=== PATIENT | female | born 1990 | race Caucasian/White ===

== ENCOUNTER 2021-09-24 12:11 | Day surgery (SDC) | payer OTHER, SELFPAY ==
[2021-09-24] VITALS (7 sets, daily range): BP systolic 119–132; BP diastolic 73–85; PULSE 52–94; RESP 16–18; TEMP 36.3–37.2; O2SAT 96–100; BMI 30.3
[2021-09-24 13:08] LABS: Hematocrit 33.7 % (37-47); Mean Corp Hgb Conc 32.6 g/dL (32-36); Mean Corpuscular Hgb 26.4 pg (27.0-32.0); Mean Platelet Vol. 9.6 fl (6.2-12.0); Platelet Count 322 K/mm3 (150-450); RBC Distribution Width CV 13.7 % (11.6-14.6); RBC Distribution Width SD 39.9 fl (35.1-43.9); Red Blood Count 4.16 M/mm3 (4.2-5.4); White Blood Count 6.3 K/mm3 (4.4-11.0)
[2021-09-24 13:10] LABS: Internal QC Validated? YES +Cl - CLEAR BKGD; Pregnancy, Urine Negative Negative
[2021-09-24] MEDS: Lactated Ringers 1,000 ML 15 ML IV (13:10)
--- NOTE | 2021-09-24 13:45 | EMB_PTH ---
PATIENT: JUAN MEHTA LOC: [facility] [place] U#:[id number] AGE/SX: 31/F ROOM: RE09/24/[address]: Dr. Ashley Parks DO : 1990 BED: DIS: 09/24/2021 SPEC #: [id number] RECD: 09/25/21 08:12 STATUS: LINDSAY SULEMA #: [id number] STEFANI: 09/24/21 13:[address]: Ashley Parks DEPT: SURGICAL PATHOLOGY RECD BY: Mimi Faulkner ENTERED: 09/25/21 08:29 SP TYPE: ENDOM BX/C OT DR: Meera Bishop, TABLE CUT OFF SAW OPERATOR-C Tissues: Endometrium, NOS Procedures: Surgery Specimen Level IV HEADER OPERATION: Hysteroscopy, D & C Symphion PRE-OP DIAGNOSIS: Abnormal pap smear of cervix TISSUE SUBMITTED: Endometrial curettings MICROSCOPIC DIAGNOSIS Endometrial curettings: Mildly disordered proliferative endometrium with focal glandular and stromal breakdown. Fragments of benign ecto- and endocervical mucosa with chronic inflammation and squamous metaplasia. SJ:jennifer 09/28/2021 COMMENT Case has been reviewed in consultation with Dr. Espinoza who concurs with the above diagnosis. IDC:AM MICROSCOPIC DESCRIPTION Slides are reviewed. GROSS DESCRIPTION Received in fixative is one container labeled with the patient's name and designated endometrial curettings. The specimen consists of multiple irregular fragments of dark byrne soft tissue that in aggregate measure 2 x 2 x 0.2 cm. The specimen is totally submitted in one cassette. / AM:jennifer 09/25/2021 TC:5 CPT: 29756
--- NOTE | 2021-09-24 13:53 | DCINST_ITS ---
Discharge Instructions Diet Discharge Diet: No restrictions Activity Discharge Activity: May Not Drive (for 24 hours after surgery) and May Not Shower (for 24 hours after surgery) May resume sexual activity in: 1-2 weeks (no tampons, intercourse, hot tubs, baths, or pools while you are having bleeding) Weight Bearing Status: Weight bearing as tolerated Lifting Restrictions: none Dressing / Incision Call your doctor if you observe: Fever of 101 or Higher, Coldness, Increased Pain, Numbness or Tingling, Change in Color, Inability to urinate, Inability to have a bowel movement, Using more than 1 pad per hour, Shortness of breath, Dizziness, Fainting spells, Swelling in the ankles, Chest pain, Increased palpitations (irregular heartbeat), Calf discomfort and Uncontrolled pain Follow Up Care Please Follow Up With: Ashley Parks DO When: 1-2 weeks for a post op appointment Test Results: Test results from this visit will be discussed in further detail at your follow- up appointment, if applicable. Discharge Plan Admission Primary Reason for Your Visit: surgery Attending Provider: Ashley Parks Primary Care Provider: Meera Bishop NP Instructions Patient Instructions: Hysteroscopy Discharge Orders/Prescriptions Prescriptions: Continued pantoprazole 40 mg Tablet,Delayed Release (Dr/Ec) 40 mg PO DAILY Referrals / Follow Up: Meera Bishop NP, SALES AND MARKETING ASSOCIATE-C [Primary Care Provider] - Disposition Disposition (needs filled in before D/C Order can be placed): Home, Self Care
--- NOTE | 2021-09-24 13:54 | OP.PCM_ITS ---
Problems Associated Problem List Diagnoses (1) DUB (dysfunctional uterine bleeding): Report of Operation Date of Procedure: 09/24/21 Pre-Operative Diagnosis: DUB, heterogenous endometrium with fluid present in cavity on pelvic US Post-Operative Diagnosis: DUB Surgery/Procedure Performed:: Hysteroscopy D&C Description of Surgical Findings:: Normal appearing uterine cavity and endometrium. No polyps or fibroids. Bilateral tubal ostia visualized. Minimal to no descent of uterus and cervix. Cervical stenosis noted. Surgeon: Ashley Parks slide fastener chain assembler: None Type of Anesthesia: Local and MAC Special Medications: None Specimen's removed: Endometrial curettings Drains: None Estimated Blood Loss (mL): < 20 cc Fluids Replaced: 0 cc fluid deficit Description of Procedure: The patient was taken to the operating room where MAC anesthesia was found to be adequate. She was prepped and draped in the dorsal lithotomy position using yellowfin stirrups. A weighted speculum was placed in the vagina to expose the cervix. The single tooth tenaculum was placed on the anterior lip of the cervix. The cervix was serially dilated to accommodate the Symphion hysteroscope. This Symphion hysteroscope was advanced to the fundus of the uterus. Normal saline was used as distention media to visualize the uterine cavity. Bilateral tubal ostia were visualized. The uterine cavity and endometrium were normal appearing. Findings were noted as above. The hysteroscope was removed. A sharp curettage was performed for a moderate amount of tissue. Endometrial curettings were sent to pathology for review. All instruments removed from the vagina. Bleeding was hemostatic. A vaginal sweep was performed. Instrument and sponge counts were correct. The patient was taken to the recovery in stable condition. Grafts/Implants Used: None Procedure Start Time: 14:12 Procedure Stop Time: 14:17 Complications None Admit VTE Documentation VTE Present on Admission: No VTE Mechan Device Prophylaxis: SCD's
== END 2021-09-24 16:10 | disposition home or self-care (01) ==
LOC: SDC 12:16 → AC 12:31
PROVIDERS: PCP Nurse Practitioner Family; Referring Provider Obstetrics & Gynecology; Visit Provider Obstetrics & Gynecology
PROC: 0UB98ZZ Excision of Uterus, Via Natural or Artificial Opening Endoscopic (ICD-10-PCS; CPT 58558; principal; 2021-09-24 13:30)
DX: N85.8 Other specified noninflammatory disorders of uterus (principal); K21.9 Gastro-esophageal reflux disease without esophagitis; Z79.899 Other long term (current) drug therapy
CPT/HCPCS: 58558; 00952; 81025; 85027; 86850; 86900; 86901; 88305; J2405

== ENCOUNTER 2022-03-25 16:22 | Emergency (ER) | payer OTHER, SELFPAY ==
[2022-03-25 16:23] VITALS: BP 132/95; PULSE 90; RESP 18; TEMP 35.8; O2SAT 99; BMI 29.2
[2022-03-25] MEDS: Ondansetron 4 MG/2 ML Vial IV (18:05)
[2022-03-25] MEDS: 0.9% Normal Saline 1,000 ML 1000 ML IV (18:06)
[2022-03-25 18:21] LABS: Bacteria 0 SEEN /hpf (None Seen)
--- NOTE | 2022-03-25 18:27 | CT_ITS ---
EXAM: CT HEAD WITHOUT INTRAVENOUS CONTRAST CLINICAL INDICATION: headache, vomiting TECHNIQUE: Multiple axial images were obtained of the head without intravenous contrast. This CT exam was performed using one or more of the following dose reduction techniques: automated exposure control, adjustment of the mA and/or kV according to patient size, and/or use of iterative reconstruction technique. This report was created using [employer] report generation technology. COMPARISON: None. FINDINGS: BRAIN AND EXTRA-AXIAL SPACES: Unremarkable. No intra- or extra-axial hemorrhage. No evidence of acute infarct. No intracranial mass or mass effect. There is preservation of the solomon/white matter interface. Posterior fossa structures are unremarkable. Ventricles are appropriate for age. No hydrocephalus. Basal cisterns are patent. BONES/JOINTS: Unremarkable. No discrete lytic or blastic abnormalities. SINUSES: Unremarkable as visualized. Clear. MASTOID AIR CELLS: Unremarkable. Clear. ORBITS: Visualized globes, extraocular muscles, optic nerves and retrobulbar fat appear unremarkable. CT/Brain/Head without Contrast IMPRESSION: Negative head/brain CT without intravenous contrast. Electronically Signed: Naveed Lao MD at 19:59 EST ,
[2022-03-25 18:29] LABS: Color, Urine Yellow (Yellow); Glucose, Dipstick Normal (Normal); Leukocyte Esterase-Dipstick 25 /ul (Negative); Nitrite-Dipstick Negative (Negative); Occult Blood-Urine 10 /ul (Negative); Protein-Dipstick 15 mg/dl (Negative); Specific Gravity, Urine 1.015 (1.002-1.030); Urine Bilirubin Dipstick Negative (Negative); Urine Clarity Sl. Cloudy (Clear); Urine Urobilinogen Normal (Normal)
[2022-03-25 18:43] LABS: AST(SGOT) 12 U/L (15-37); Alanine Aminotransfer ALT/SGPT 28 U/L (13-56); Albumin, Serum 4.1 g/dL (3.2-5.0); Alkaline Phosphatase 65 U/L (45-117); Anion Gap 6 (5-15); BUN 12 mg/dL (7-18); BUN/Creat Ratio 15.2 RATIO (10-20); Calcium,Total 9.5 mg/dL (8.5-10.1); Chloride 107 mmol/L (98-107); Creatinine, Serum 0.79 mg/dL (0.55-1.02); EST Glomerular Filtration Rate 89 mL/min (>60); Est Glom Filt Rate - Afr Amer 107 mL/min (>60); Estimated Creatinine Clearance 79.36 ml/min; Globulin 4.1 g/dL (2.2-4.2); Glucose 104 mg/dL (74-106); Lipase 137 U/L (73-393); Potassium 3.5 mmol/L (3.5-5.1); Protein, Total 8.2 g/dL (6.4-8.2); Sodium Level 138 mmol/L (136-145)
[2022-03-25 19:02] LABS: Ketone-Dipstick 150 mg/dl (Negative)
[2022-03-25 19:14] LABS: Internal QC Validated? YES +Cl - CLEAR BKGD; Mucous, Urine 4+ /hpf (<or=2+); Pregnancy, Urine Negative Negative; Red Blood Cells-Urine 0-5 SEEN /hpf (0-5); Squamous Epithelial Cells - UA 5-10 SEEN /hpf (5-10); White Blood Cells 0-5 SEEN /hpf (0-5)
[2022-03-25 19:35] LABS: Absolute Lymphocyte Count 0.83 X10^3/uL (0.83-4.51); Absolute Neutrophil Count 8.8 X10^3/uL (2.0-7.7); Basophil# 0.03 X10^3/uL; Basophil% 0.3 % (0-1); Eosinophil# 0.01 X10^3/uL; Eosinophils% 0.1 % (0-5); Hematocrit 36.4 % (37-47); Hemoglobin 11.4 g/dL (12.0-15.0); Lymphocyte # 0.83 X10^3/ul (0.83-4.51); Lymphocyte % 8.2 % (19-41); Mean Corp Hgb Conc 31.3 g/dL (32-36); Mean Corpuscular Hgb 24.5 pg (27.0-32.0); Mean Corpuscular Volume 78.1 fL (81-99); Mean Platelet Vol. 9.8 fl (6.2-12.0); Monocyte% 4.9 % (0-10); NRBC Flagged by Analyzer 0 % (0-5); Neutrophil # 8.77 X10^3/uL (2.7-7.7); Neutrophil % 86.2 % (47-70); Platelet Count 386 K/mm3 (150-450); RBC Distribution Width CV 14.6 % (11.6-14.6); RBC Distribution Width SD 40.7 fl (35.1-43.9); Red Blood Count 4.66 M/mm3 (4.2-5.4); White Blood Count 10.2 K/mm3 (4.4-11.0)
--- NOTE | 2022-03-25 20:06 | EDS_ITS ---
HPI History of Present Illness Chief Complaint: Nausea/Vomiting Informant: patient Narrative Narrative: Patient is a 32-year-old female presenting with nausea, vomiting and headache. Patient states her stomach was upset throughout the night last night and then sh e woke up puking. She did have an episode of diarrhea this morning. Initially she was vomiting food from the night before and then it just became clear. Denies any black or blood in her vomit. Around 2 PM she developed a headache over her right eye that radiates to her right ear. She does have a history of migraine headaches was never had a unilateral 1. She states she has had a lot of forceful vomiting. Denies any vision changes, numbness, tingling, speech changes or any other neurologic symptoms. Was sent home from work today because she was throwing up. Does have a history of endometriosis and has associated exploratory laparoscopy as well as a tubal ligation and unilateral salpingectomy associated with an ectopic . No other complaints at this time. [facility] Medical History (Updated 03/25/22 @ 22:[address] Pura Tompkins, DO) Cancer Gastric reflux Hx of LEEP (loop electrosurgical excision procedure) of cervix complicating Migraine headache Non-smoker Restless legs Home Medications pantoprazole 40 mg tablet,delayed release 40 mg PO DAILY 09/17/21 [History Last Taken Unknown] ondansetron 4 mg disintegrating tablet 4 mg PO Q6H PRN nausea and vomiting #20 tabs 03/25/22 [Rx Last Taken Unknown] Allergy/AdvReac Type Severity Reaction Status Date / Time No Known Allergies Allergy Verified 03/25/22 16:23 Surgical History (Updated 09/17/21 @ 10:27 by Adelina Reyna) History of hysteroscopy Hx of dilation and curettage Hx of laparoscopy Hx of tubal ligation Social History (Updated 08/03/19 @ 11:19 by Álvaro PETERS, PA) Smoking Status: Never smoker ROS ROS ED Constitutional Constitutional ED: Denies chills or fever(s) ENT ENT ED: Denies sore throat Cardiovascular Cardiovascular: Denies chest pain Respiratory/Chest Respiratory/Chest: Denies cough or dyspnea Gastrointestinal Gastrointestinal: Reports abdominal pain, diarrhea, nausea and vomiting Genitourinary Genitourinary ED: Denies dysuria or hematuria Musculoskeletal Musculoskeletal: Denies arthralgias or myalgias Integumentary Denies rash Neurologic Neurologic: Reports headache(s); Denies paresthesias or weakness Psychiatric Psychiatric: Denies anxiety Hematologic/Lymphatic Hematologic/Lymphatic: Denies easy bleeding EXAM Physical Exam Const Vital Signs: 03/25/22 16:23 Temperature 96.5 F L Temperature Source Temporal Pulse Rate 90 Respiratory Rate 18 Blood Pressure 132/95 H Blood Pressure Mean 107 Pulse Ox 99 Oxygen Delivery Method Room Air Positive well nourished and well developed General Appearance ED: well developed and NAD HEENT Reports TM's clear and dry mucous membranes Tympanic Membrane ED: Yes TM's clear Mouth ED: Yes dry mucous membranes Mouth: dry mucous membranes Eyes PERRL and EOMs intact bilaterally Neck supple and no JVD Neck Narrative: No nuchal rigidity Resp normal respiratory effort and clear to auscultation bilaterally Cardio regular rate, regular rhythm and no murmurs GI normal to inspection, nondistended, normoactive bowel sounds GI Narrative: Mild diffuse tenderness, worse in the lower abdomen Palpation: Negative for guarding Neuro oriented x3 Sensorium / Orientation: alert Psych mental status grossly normal Skin no rashes or lesions noted MDM MDM MDM Narrative Medical decision making narrative: Patient is evaluated for sudden onset of nausea, vomiting diarrhea. After multiple pills of vomiting she developed a right-sided headache. She has a history of migraines but she never had unilateral headache. She has normal neurologic exam. Given her vomiting differential does include subarachnoid hemorrhage/ruptured aneurysm. She is within 6 hours of symptom onset and CT of the brain is obtained to rule out intracranial hemorrhage. This is negative. In the meantime patient is given IV fluids and Zofran. She is feeling better but still complain of a headache. Lab work including CBC, CMP and lipase is largely normal. Urinalysis does show 150 ketones but otherwise unremarkable. Patient is then given a migraine cocktail including Compazine, Benadryl and Toradol as well as additional liter of IV fluid. Repeat evaluation she is improved. She be discharged home with a prescription for Zofran. Given her improvement of symptoms with no leukocytosis or other laboratory normalities I do not think imaging is indicated. She is given return precautions. Lab Data Attestation: I reviewed the patient's lab results. Labs: Laboratory Results - last 24 hr 03/25/22 03/25/22 03/25/22 18:00 18:05 18:05 WBC 10.2 RBC 4.66 Hgb 11.4 L Hct 36.4 L MCV 78.1 L MCH 24.5 L MCHC 31.3 L RDW Std Deviation 40.7 RDW Coeff of Sharla 14.6 Plt Count 386 MPV 9.8 Immature Gran % (Auto) 0.300 Neut % (Auto) 86.2 H Lymph % (Auto) 8.2 L Rabun % (Auto) 4.9 Eos % (Auto) 0.1 Baso % (Auto) 0.3 Absolute Neuts (auto) 8.8 H Absolute Lymphs (auto) 0.83 Nucleated RBC % 0 Sodium 138 Potassium 3.5 Chloride 107 Carbon Dioxide 25.0 Anion Gap 6 BUN 12 Creatinine 0.79 Estim Creat Clear Calc 79.36 Est GFR (MDRD) Af Amer 107 Est GFR (MDRD) Non-Af 89 BUN/Creatinine Ratio 15.2 Glucose 104 Calcium 9.5 Total Bilirubin 0.50 AST 12 L ALT 28 Alkaline Phosphatase 65 Total Protein 8.2 Albumin 4.1 Globulin 4.1 Albumin/Globulin Ratio 1.0 Lipase 137 Urine Color Yellow Urine Clarity Sl. Cloudy Urine pH 7.0 Ur Specific Mccaulley 1.015 Urine Protein 15 H Urine Glucose (UA) Normal Urine Ketones 150 A* Urine Occult Blood 10 H Urine Nitrite Negative Urine Bilirubin Negative Urine Urobilinogen Normal Ur Leukocyte Esterase 25 H Urine RBC 0-5 SEEN Urine WBC 0-5 SEEN Ur Squamous Epith Cells 5-10 SEEN Urine Bacteria 0 SEEN Urine Mucus 4+ Urine Test Negative Radiography Diagnostic Testing: Clinical Impression(s) from Imaging Studies Brain CT 03/25/22 18:27 IMPRESSION: Negative head/brain CT without intravenous contrast. Electronically Signed: Naveed Lao MD at 19:59 EST , Discharge Plan Triage Chief Complaint: Nausea/Vomiting ED Provider: Pura Tompkins Dx/Rx/DC Orders Clinical Impression: Nausea and vomiting, Acute dehydration, Headache Instructions: ED Dehydration (Adult), ED Vomiting (Adult) Prescriptions: New ondansetron 4 mg tablet,disintegrating 4 mg PO Q6H PRN (Reason: nausea and vomiting) Qty: 20 0RF No Action pantoprazole 40 mg Tablet,Delayed Release (Dr/Ec) 40 mg PO DAILY Primary Care Provider: Patricia Snowden Referrals: Patricia Snowden DO [Primary Care Provider] - Disposition Disposition: Home, Self Care Discharge Date/Time: 03/25/22 23:02
[2022-03-25] MEDS: Ketorolac 15 MG/ML Vial IV (20:34)
[2022-03-25] MEDS: 0.9% Normal Saline 1,000 ML 999 ML IV (20:34)
[2022-03-25] MEDS: DiphenhydrAMINE 50 MG/ML Syringe 25 MG IV (20:34)
[2022-03-25] MEDS: proCHLORPERazine 10 MG/2 ML Vial IV (20:34)
== END 2022-03-25 23:02 | disposition home or self-care (01) ==
PROVIDERS: Emergency Provider Emergency Medicine; PCP Family Medicine; Visit Provider Emergency Medicine
DX: R11.2 Nausea with vomiting, unspecified (principal); E86.0 Dehydration; R51.9 Headache, unspecified
CPT/HCPCS: 70450; 80053; 81001; 81025; 83690; 85025; 96361; 96374; 96375; 99283; J7030; A4216; J2405

== ENCOUNTER 2022-11-30 11:07 | Day surgery (SDC) | payer OTHER, SELFPAY ==
--- NOTE | 2022-11-30 | ESO_PTH ---
PATIENT: JUAN MEHTA LOC: [facility] U#:[id number] AGE/SX: 32/F ROOM: RE11/30/[address]: Dr. Ge Bacon DO : 1990 BED: DIS: 11/30/2022 SPEC #: [id number] RECD: 11/30/22 13:40 STATUS: LINDSAY SULEMA #: [id number] STEFANI: 11/30/22 00:[address]: Ge Bacon DEPT: SURGICAL PATHOLOGY RECD BY: Ariel Perez ENTERED: 12/01/22 09:18 SP TYPE: RACHID JAIME DR: Meera Bishop, FIELD ENGINEER-C Tissues: Esophagus, NOS Procedures: Special Stain Group II Special Stain Group I Surgery Specimen Level IV GMS Stain (control) Alcian Blue/PAS (control) HEADER OPERATION: EGD ([facility] [place]) with biopsy PRE-OP DIAGNOSIS: Gastric reflux, loose stools TISSUE SUBMITTED: Distal esophagus biopsy MICROSCOPIC DIAGNOSIS Distal esophagus, biopsy: Fragments of gastroesophageal mucosa with focal intestinal metaplasia (goblet cell metaplasia), consistent with Alas's esophagus. Focal ulceration, acute and chronic inflammation and granulation tissue reaction. Negative for dysplasia. See comment. GONZÁLEZ:jennifer 12/02/2022 COMMENT Alcian blue/PAS stain with matched control is used in the evaluation of the specimen. Immunohistochemistry ([id number]) for P53 and Ki-67 will be performed and results will be reported separately. Special stain for fungi is negative for organisms; matched control is appropriate. MICROSCOPIC DESCRIPTION Slides are reviewed. GROSS DESCRIPTION Received in fixative is one container labeled with the patient's name and designated distal esophagus biopsy. The specimen consists of multiple irregular fragments of light byrne soft tissue that in aggregate measure 1.0 x 0.4 x 0.1 cm. The specimen is totally submitted in one cassette. / GONZÁLEZ:jennifer 12/01/2022 TC:2 CPT: 67331, 51367, 42471
[2022-11-30 11:28] VITALS: BP 122/92; PULSE 85; RESP 16; TEMP 36.2; O2SAT 97; BMI 30.6
[2022-11-30] MEDS: Lactated Ringers 1,000 ML 15 ML IV (11:33)
--- NOTE | 2022-11-30 12:11 | HP.PCM_ITS ---
History and Physical Date of Admission: 11/30/22 32 F who presents to the office today for acid reflux. She reports heartburn for as long as she can remember but significantly worse this year. Gets burning in her throat, every day, worse when lying down. Pantoprazole helps but symptoms not fully resolved. Vomits about 3 nights a week, usually yellow emesis. No dysphagia. Gets full quickly, that started this year. Discomfort in upper abdomen. BMs 4 x w/in first hour of getting up, stool is typically loose, usually has a yellow tint. No nocturnal BMs. Had constipation as a child. No melena or hematochezia. Told sludge in gallbladder. She is an [employer] ROS Const Constitutional: Positive for fatigue ENT ENT: No difficulty swallowing Gastro GI: Positive for abdominal pain, bloating, heartburn, excessive flatus, nausea/dyspepsia and vomiting; No belching, change in bowel habits, change in stool character, coffee ground emesis, constipation, cramping, diarrhea, difficulty swallowing, feeling full early, incontinent of stools, Vomiting blood/hematemesis, Blood in stool, loose stools, Black,tarry stools, pain with swallowing or other Musc Musculoskeletal: Positive for back pain, stiffness, restless legs and leg pain at night; No joint pain Skin Skin: No yellowing of the eye or itchy eyes Neuro Neurology: Positive for restless legs Psych Psychiatric: Positive for anxiety and No depression Endo Endocrine: Positive for fatigue Aller/Imm Allergy/Immunologic: No itchy eyes Michael/Lymp Hematologic/Lymphatic: No easy bleeding or easy bruising Exam Const General: cooperative and comfortable Orientation: alert, awake and oriented x3 Eyes Sclera: sclerae normal Resp Effort & Inspection: normal respiratory effort GI Inspection: normal to inspection Palpation: soft, no hepatosplenomegaly, no masses and tender in the epigastrum Quality Reporting Tobacco Screening ([facility] 138) Smoking Status: Never smoker Assessment and Plan Assessment and Plan (1) Gastric reflux: Status: Chronic Plan: 32 yr old female with chronic reflux only partially controlled with PPI. ?bile acid reflux and bile acid diarrhea. Start colestipol 1-2 g qhs. Will get EGD. (2) Loose stools: Status: Chronic Plan: as above Medications: New colestipol 1-2 tablets orally at bedtime; 60 tabs 2RF Discontinued ondansetron Discontinued Reason: Order Completed 4 mg PO Q6H PRN 20 tabs 0RF nausea and vomiting I have examined the patient and the H&P has been reviewed. There are no clinical changes since date of exam.
[2022-11-30 12:35] VITALS: BP 104/63; BP 122/92; PULSE 94; RESP 16; TEMP 36.4; O2SAT 97
--- NOTE | 2022-11-30 12:36 | OP.EGD_ITS ---
Patient Name: Clau Ganhdi Procedure Date: 11/30/2022 12:09 PM Date of : 1990 Age: 32 Procedure: Upper GI endoscopy Indications: Epigastric abdominal pain, Dysphagia, Heartburn, Suspected esophageal reflux Providers: Ge Bacon DO Referring MD: Abdirahman Cheng Medicines: Monitored Anesthesia Care Patient Profile: This is a 32 year old female. Refer to note in patient chart for documentation of history and physical. Patient has symptoms of chronic epigastric abdominal pain, dysphagia with solids, chronic heartburn and chronic nausea. Complications: No immediate complications. Procedure: Pre-Anesthesia Assessment: - Prior to the procedure, a History and Physical was performed, and patient medications and allergies were reviewed. The risks and benefits of the procedure and the sedation options and risks were discussed with the patient. All questions were answered and informed consent was obtained. Patient identification and proposed procedure were verified by the physician. Mental Status Examination: normal. Prophylactic Antibiotics: The patient does not require prophylactic antibiotics. Prior Anticoagulants: The patient has taken no anticoagulant or antiplatelet agents. After reviewing the risks and benefits, the patient was deemed in satisfactory condition to undergo the procedure. The anesthesia plan was to use monitored anesthesia care (MAC). Immediately prior to administration of medications, the patient was re-assessed for adequacy to receive sedatives. The heart rate, respiratory rate, oxygen saturations, blood pressure, adequacy of pulmonary ventilation, and response to care were monitored throughout the procedure. The physical status of the patient was re-assessed after the procedure. After obtaining informed consent, the endoscope was passed under direct vision. Throughout the procedure, the patient's blood pressure, pulse, and oxygen saturations were monitored continuously. The Endoscope was introduced through the mouth, and advanced to the second part of duodenum. The upper GI endoscopy was accomplished without difficulty. The patient tolerated the procedure well. Scope In: 12:24:52 PM Scope Out: 12:28:43 PM Total Procedure Duration Time 0 hours 3 minutes 51 seconds Findings: LA Grade C (one or more mucosal breaks continuous between tops of 2 or more mucosal folds, less than 75% circumference) esophagitis with bleeding was found 36 to 39 cm from the incisors. Biopsies were taken with a cold forceps for histology. Verification of patient identification for the specimen was done. Estimated blood loss was minimal. A moderate Schatzki ring was found in the distal esophagus. A guidewire was placed and the scope was withdrawn. Dilation was performed with an Trinidadian dilator with no resistance at 39 Fr. A medium-sized hiatal hernia was present. The first portion of the duodenum was normal. Impression: - LA Grade C erosive esophagitis with bleeding. Biopsied. - Moderate Schatzki ring. Dilated. - Medium-sized hiatal hernia. - Normal first portion of the duodenum. Recommendation: - Discharge patient to home. - Resume previous diet. - Use Protonix (pantoprazole) 40 mg PO BID for 3 months. - Continue present medications. Procedure Code(s): --- Professional --- 18133, Esophagogastroduodenoscopy, flexible, transoral; with insertion of guide wire followed by passage of dilator(s) through esophagus over guide wire 15057, 59,51, Esophagogastroduodenoscopy, flexible, transoral; with biopsy, single or multiple CPT copyright 2021 [employer]. All rights reserved. The codes documented in this report are preliminary and upon assistant director of security review may be revised to meet current compliance requirements. Ge Bacon DO 11/30/2022 12:36:14 PM This report has been signed electronically. Number of Addenda: 0 Note Initiated On: 11/30/2022 12:09 PM
--- NOTE | 2022-11-30 12:37 | OP.CCLET_ITS ---
11/30/2022 Abdirahman Cheng Re : Upper GI endoscopy procedure for Clau Gandhi Dear Edna This procedure was performed on Wednesday, November 30, 2022. My impressions and recommendations are as follows: Impressions : - LA Grade C erosive esophagitis with bleeding. Biopsied. - Moderate Schatzki ring. Dilated. - Medium-sized hiatal hernia. - Normal first portion of the duodenum. Recommendations : - Discharge patient to home. - Resume previous diet. - Use Protonix (pantoprazole) 40 mg PO BID for 3 months. - Continue present medications. My findings are described in the full procedure note, which is enclosed. If I can be of further assistance, please feel free to contact me at . Sincerely, Ge Friend, 11/30/2022 12:36:14 PM This report has been signed electronically.
[2022-11-30 12:40] VITALS: BP 119/83; BP 122/92; PULSE 85; RESP 16; O2SAT 99
[2022-11-30 12:45] VITALS: BP 110/77; BP 122/92; PULSE 85; RESP 16; O2SAT 100
[2022-11-30 12:50] VITALS: BP 109/81; BP 122/92; PULSE 82; RESP 16; TEMP 36.8; O2SAT 100
[2022-11-30 13:00] VITALS: BP 122/92
--- NOTE | 2022-12-01 | IMM_PTH ---
PATIENT: JUAN MEHTA LOC: [facility] U#:[id number] AGE/SX: 32/F ROOM: RE11/30/[address]: Dr. Ge Bacon DO : 1990 BED: DIS: 11/30/2022 SPEC #: [id number] RECD: 12/02/22 13:00 STATUS: LINDSAY REThaddeus #: [id number] STEFANI: 12/01/22 00:[address]: Ge Bacon DEPT: IMMUNOHISTOCHEMISTRY RECD BY: Nona Kyle ENTERED: 12/02/22 13:01 SP TYPE: IMMUNO OTHR DR: Meera Bishop, SALES OUTFITTER-C Tissues: Esophagus, NOS Procedures: P53 (initial) KI-67 (add) PHYSICIAN & INSTITUTION [place] [id number] SPECIMEN INFORMATION: Tissue Source: Distal esophagus Clinical Info: Gastric reflux, loose stools Specimen Number: [id number] CPT code: 22602 METHODOLOGY: Deparaffinized sections of prefer/formalin-fixed tissue or PAP/DQ stained slides are incubated with monoclonal/polyclonal antibodies/oligonucleotide probes. Localization is made via biotin free immunoperoxidase method. Appropriate controls are performed and reacted as expected. Results on target cell population are indicated in the following table: RESULTS: ANTIBODY / CLONE RESULT P53 (DO-7) negative (null pattern) Ki-67 (30-9) positive, very low These tests were developed and their performance characteristics determined by [facility]. They may not have been cleared or approved by the U.S. Food and Drug Administration. The FDA has determined that such clearance or approval is not necessary. The above immunohistochemical/dualISH markers are ordered and reviewed by the Pathologist. INTERPRETATION: Distal esophagus, biopsy: Negative for dysplasia. GONZÁLEZ:jennifer 12/03/2022
== END 2022-11-30 13:18 | disposition home or self-care (01) ==
LOC: EN 11:08 → AC 11:09
PROVIDERS: PCP Nurse Practitioner Family; Referring Provider Nurse Practitioner Family; Visit Provider Internal Medicine Gastroenterology
PROC: 0DJ08ZZ Inspection of Upper Intestinal Tract, Via Natural or Artificial Opening Endoscopic (ICD-10-PCS; CPT 43235; principal; 2022-11-30 11:55)
DX: K22.11 Ulcer of esophagus with bleeding (principal); K44.9 Diaphragmatic hernia without obstruction or gangrene; K21.00 Gastro-esophageal reflux disease with esophagitis, without bleeding; Z79.899 Other long term (current) drug therapy; K22.2 Esophageal obstruction; E78.00 Pure hypercholesterolemia, unspecified
CPT/HCPCS: 43239; 43248; 88305; 88312; 88313; 88341; 88342; J7120

== ENCOUNTER → 2022-12-02 | Outpatient (CLI) | payer OTHER, SELFPAY ==
--- NOTE | 2022-12-02 13:54 | US_ITS ---
STUDY: ULTRASOUND OF THE FEMALE PELVIS - COMPLETE REASON FOR EXAM: Female, 32 years old. Pelvic pain. LMP: November 15, 2022. TECHNIQUE: Transabdominal and Transvaginal TECHNICAL QUALITY: Adequate. COMPARISON: None. FINDINGS: The uterus is anteverted and is in a midline position. The uterus measures 9.5 cm x 5.6 cm x 4.3 cm. There is a Nabothian cyst of the cervix. The right endometrium measures 17.7 mm in thickness, and is hyperechoic. There is no demonstrated endometrial mass. There is no demonstrated myometrial mass. Partial septated uterus. The left side of the endometrium contains an 8 mm x 8 mm x 8 mm echogenic nodule suggestive of possible polyp. I.U.D. - The patient does not have an I.U.D. The right ovary is visualized. The right ovary measures 3.2 cm x 2.5 cm x 2 cm. There is no right ovarian cyst or ovarian mass. There is no visualized right adnexal mass or complex lesion. There is normal arterial and normal venous vascularity. The left ovary is visualized. The left ovary measures 2.8 cm x 2.6 cm x 2.1 cm. There is no left ovarian cyst or ovarian mass. There is no visualized left adnexal mass or complex lesion. There is normal arterial and normal venous vascularity. There is no fluid in the cul-de-sac. The pre void volume of the bladder was 118 ml. US/Pelvic (Non ) IMPRESSION: Septated uterus. Thickened endometrium. Findings suggestive of a 8mm by 8 mm x 8 mm endometrial polyp in the left-sided the uterus. Electronically Signed: Gurvinder Brady MD at 14:18 EDT ,
== END | disposition home or self-care (01) ==
PROVIDERS: PCP Nurse Practitioner Family; Referring Provider Nurse Practitioner Women's Health; Visit Provider Nurse Practitioner Women's Health
DX: R10.2 Pelvic and perineal pain (principal); N80.9 Endometriosis, unspecified; G89.29 Other chronic pain
CPT/HCPCS: 76830; 76856

== ENCOUNTER → 2022-12-14 | Outpatient (CLI) | payer OTHER, SELFPAY ==
--- NOTE | 2022-12-14 10:13 | NM_ITS ---
CLINICAL: 32-year-old female with history of gastroesophageal reflux disease. SEMI-SOLID PHASE 99m Tc SULFUR COLLOID GASTRIC EMPTYING STUDY COMPARISON: None available FINDINGS: The patient was administered 1.0 mCi of 99m Tc sulfur colloid mixed with oatmeal and consumed per os. Image acquisitions in the anterior-posterior projections were obtained for 60 minutes. There is prompt visualization of the stomach. There is no gastroesophageal reflux identified. The T ? raw data emptying was calculated to be 42.65 minutes, (Normal: 12-56 minutes). NM/Gastric Emptying Study IMPRESSION: 1. NORMAL 99m Tc sulfur colloid semi-solid phase (oatmeal) gastric emptying imaging examination. A. There is normal and preserved semi-solid phase gastric emptying compared to normal controls.. (Keisha et al, J Nucl Med Tech 38: 186, 2010). Electronically Signed: Law Hill DO at 22:37 EDT ,
== END | disposition home or self-care (01) ==
PROVIDERS: PCP Nurse Practitioner Family; Referring Provider Internal Medicine Gastroenterology; Visit Provider Internal Medicine Gastroenterology
DX: K21.9 Gastro-esophageal reflux disease without esophagitis (principal)
CPT/HCPCS: 78264; A9541

== ENCOUNTER → 2023-01-04 | Outpatient (CLI) | payer OTHER, SELFPAY ==
--- NOTE | 2023-01-04 17:57 | CT_ITS ---
STUDY: CT ABDOMEN AND PELVIS WITH CONTRAST REASON FOR EXAM: Female, 32 years old. acid reflux and loose stools RADIATION DOSAGE (If Supplied By Facility): CTDIvol = ( 13.67 ) mGy, DLP = ( 862.13 ) mGycm TECHNIQUE: Oral and amp; IV Readi-CAT and amp; 100mL Isovue-370 was administered. Transaxial images were obtained from the dome of the diaphragm to the symphysis pubis in the portal venous phase. Multiplanar coronal and sagittal images were reformatted. Individualized Dose Optimization Techniques Were Used For This CT. COMPARISON: No relevant prior comparison study available FINDINGS: LOWER CHEST: Lung bases are clear. No cardiomegaly or pericardial effusion. LIVER: The liver is normal in size, shape, and attenuation. No focal mass. GALLBLADDER AND BILIARY TREE: Cholelithiasis. No gallbladder wall thickening or pericholecystic fluid. No intra- or extrahepatic biliary ductal dilation. PANCREAS: No focal cystic or solid mass. SPLEEN: Normal size without focal cystic or solid mass. ADRENAL GLANDS: No nodules. KIDNEYS AND URETERS: Normal renal size and position. No hydronephrosis. Punctate nonobstructive calculus in the upper pole of the left kidney. PERITONEUM: No ascites or free air. No other fluid collection. BOWEL: The stomach is unremarkable. Normal caliber small bowel. Small duodenal diverticulum. There is no obstruction. No colonic wall thickening or inflammation. Extensive pancolonic diverticulosis present, worse on the left. No free air or free fluid. Normal appendix. LYMPH NODES: No enlarged mesenteric or retroperitoneal lymph nodes. VESSELS: Aorta is mildly atherosclerotic but normal caliber. Patent vascular structures. URINARY BLADDER: Unremarkable. REPRODUCTIVE ORGANS: Uterus and adnexa unremarkable. ABDOMINAL WALL: Small fat-containing umbilical hernia without associated inflammation. BONES: No acute or suspicious osseous abnormalities. CT/Abdomen/Pelvis WITH Contrast IMPRESSION: * No acute findings in the abdomen or pelvis. * Cholelithiasis. * Extensive pancolonic diverticulosis, most pronounced in the left colon. No evidence of diverticulitis at the time of this exam. * Aorta is atherosclerotic, greater than expected for patient age. Recommend nonemergent formal cardiovascular health risk assessment. Electronically Signed: Trey Hannah MD at 21:01 EDT ,
== END | disposition home or self-care (01) ==
LOC: CT 17:56
PROVIDERS: PCP Nurse Practitioner Family; Referring Provider Internal Medicine Gastroenterology; Visit Provider Internal Medicine Gastroenterology
DX: K21.9 Gastro-esophageal reflux disease without esophagitis (principal); R19.5 Other fecal abnormalities
CPT/HCPCS: 74177; Q9967

== ENCOUNTER 2023-02-18 07:24 | Day surgery (SDC) | payer OTHER, SELFPAY ==
[2023-02-18 07:38] VITALS: BP 142/93; PULSE 94; RESP 16; TEMP 36.6; O2SAT 100
[2023-02-18] MEDS: Lidocaine Jelly 2% 20 ML Syringe (URO-JET) 1 APPLIC (07:45)
== END 2023-02-18 08:09 | disposition home or self-care (01) ==
PROVIDERS: PCP Nurse Practitioner Family; Referring Provider Internal Medicine Gastroenterology; Visit Provider Internal Medicine Gastroenterology
PROC: F00ZJWZ Instrumental Swallowing and Oral Function Assessment using Swallowing Equipment (ICD-10-PCS; CPT 43235; principal; 2023-02-18 07:25)
DX: K22.10 Ulcer of esophagus without bleeding (principal)
CPT/HCPCS: 91010

== ENCOUNTER → 2023-03-04 08:31 | Outpatient (REF) | payer OTHER, SELFPAY | LOC: CVS 08:31 | PROVIDERS: PCP Nurse Practitioner Family; Referring Provider Nurse Practitioner Family; Visit Provider Nurse Practitioner Family | DX: Z00.00 Encounter for general adult medical examination without abnormal findings (principal) ==

== ENCOUNTER → 2023-04-06 | Outpatient (CLI) | payer OTHER, SELFPAY ==
[2023-04-06 14:04] LABS: AST(SGOT) 15 U/L (15-37); Alanine Aminotransfer ALT/SGPT 36 U/L (13-56); Albumin, Serum 3.6 g/dL (3.2-5.0); Alkaline Phosphatase 50 U/L (45-117); Anion Gap 3 (5-15); BUN 10 mg/dL (7-18); BUN/Creat Ratio 14.9 RATIO (10-20); Calcium,Total 9.3 mg/dL (8.5-10.1); Chloride 111 mmol/L (98-107); Creatinine, Serum 0.67 mg/dL (0.55-1.02); EST Glomerular Filtration Rate 106 mL/min (>60); Est Glom Filt Rate - Afr Amer 128 mL/min (>60); Globulin 3.7 g/dL (2.2-4.2); Glucose 92 mg/dL (74-106); Potassium 3.7 mmol/L (3.5-5.1); Protein, Total 7.3 g/dL (6.4-8.2); Sodium Level 140 mmol/L (136-145)
== END | disposition home or self-care (01) ==
LOC: LAB 12:28
PROVIDERS: PCP Nurse Practitioner Family; Referring Provider Internal Medicine Cardiovascular Disease; Visit Provider Internal Medicine Cardiovascular Disease
DX: R00.2 Palpitations (principal); I70.90 Unspecified atherosclerosis; K21.00 Gastro-esophageal reflux disease with esophagitis, without bleeding; K44.9 Diaphragmatic hernia without obstruction or gangrene; I10 Essential (primary) hypertension
CPT/HCPCS: 36415; 80053

== ENCOUNTER → 2023-04-15 | Outpatient (CLI) | payer OTHER, SELFPAY ==
[2023-04-15 11:16] LABS: Anion Gap 6 (5-15); BUN 11 mg/dL (7-18); BUN/Creat Ratio 16.7 RATIO (10-20); Calcium,Total 8.7 mg/dL (8.5-10.1); Chloride 109 mmol/L (98-107); Cholesterol 268 mg/dL (200); Creatinine, Serum 0.66 mg/dL (0.55-1.02); EST Glomerular Filtration Rate 109 mL/min (>60); Est Glom Filt Rate - Afr Amer 131 mL/min (>60); Glucose 91 mg/dL (74-106); High Density Lipoprotein 49 mg/dL; Potassium 3.8 mmol/L (3.5-5.1); Sodium Level 140 mmol/L (136-145); Triglycerides 109 mg/dL; Very Low Density Lipoprotein 22 mg/dL (5-40)
== END | disposition home or self-care (01) ==
LOC: LAB 09:45
PROVIDERS: PCP Nurse Practitioner Family; Referring Provider Internal Medicine Cardiovascular Disease; Visit Provider Internal Medicine Cardiovascular Disease
DX: E78.00 Pure hypercholesterolemia, unspecified (principal); I10 Essential (primary) hypertension; I70.90 Unspecified atherosclerosis; R00.2 Palpitations
CPT/HCPCS: 36415; 80048; 80061

== ENCOUNTER → 2023-05-04 | Outpatient (CLI) | payer OTHER, SELFPAY ==
--- OUTSIDE RECORDS SUMMARY | 2023-05-04 07:32 | XMS RPT_ITS | CCD ---
Author Name Unknown Address [address] [place] [address] Organization [facility] Care Team Providers Care Barrel Raiser Helper Name Role Phone Unavailable Primary Care Provider Unavailabl e SHIRIN, CECILLE Attending Unavailable WISWELL, CECILLE Referring Unavailable WISWELL, CECILLE Attending Unavailable WISWELL, CECILLE Referring Unavailable WISWELL, CECILLE Attending Unavailable WISWELL, CECILLE Referring Unavailable WISWELL, CECILLE Referring Unavailable WISWELL, CECILLE Attending Unavailable WISWELL, CECLILE Referring Unavailable WISWELL, CECILLE Referring Unavailable BAKER, MARILUZ TA Attending Unavailable WISWELL, CECILLE Referring Unavailable BAKER, MARILUZ TA Attending Unavailable BAKER, MARILZU TA Referring Unavailable BAKER, MARILUZ TA Attending Unavailable BAKER, MARILUZ TA Referring Unavailable UNGERER ECHO POTTERY DECORATION DESIGNER Primary Care Unavailable UNGERER, ECHO POTTERY DECORATION DESIGNER Attending Unavailable UNGERERECHO POTTERY DECORATION DESIGNER Admitting Unavailable RADHA HAYES DO Consulting Unavailable PROVIDER, UNKNOWN Consulting Unavailable PROVIDER, UNKNOWN Consulting Unavailable RADHA AHYES DO Consulting Unavailable UNGERERECHO POTTERY DECORATION DESIGNER Primary Care Unavailable UNGERERECHO POTTERY DECORATION DESIGNER Attending Unavailable UNGERERGAUDENCIOECHO POTTERY DECORATION DESIGNER Admitting Unavailable PROVIDER, UNKNOWN Consulting Unavailable PROVIDER, UNKNOWN Consulting Unavailable RADHA HAYES DO Referring Unavailable PILAR BLUNT DO Primary Care Unavailable PILAR BLUNT DO Attending Unavailable PILAR BLUNT DO Admitting Unavailable RADHA HAYES DO Consulting Unavailable PROVIDER, UNKNOWN Consulting Unavailable PROVIDER, UNKNOWN Consulting Unavailable RADHA HAYES DO Consulting Unavailable RADHA HAYES DO Referring Unavailable RAJAT CHASE DO Primary Care Unavailable RAJAT CHASE DO Attending Unavailable RAJAT CHASE DO Admitting Unavailable PROVIDER, UNKNOWN Consulting Unavailable PROVIDER, UNKNOWN Consulting Unavailable RADHA HAYES DO Referring Unavailable CHRISTY KMI DO Primary Care Unavailable CHRISTY KIM DO Attending Unavailable CHRISTY KIM DO Admitting Unavailable RADHA HAYES DO Consulting Unavailable PROVIDER, UNKNOWN Consulting Unavailable PROVIDER, UNKNOWN Consulting Unavailable JUAN JOSEPH CNP Referring Unavailable FLORIDALMA MURRAY Primary Care Unavailable FLORIDALMA MURRAY Attending Unavailable JUAN JOSEPH CNP Consulting Unavailable FLORIDALMA MURRAY Admitting Unavailable PROVIDER, UNKNOWN Consulting Unavailable PROVIDER, UNKNOWN Consulting Unavailable RADHA HAYES DO Attending Unavailable RADHA HAYES DO Admitting Unavailable RADHA HAYES DO Primary Care Unavailable RADHA HAYES DO Consulting Unavailable PROVIDER, UNKNOWN Consulting Unavailable PROVIDER, UNKNOWN Consulting Unavailable Unavailable Primary Care Provider Unavailabl e Medications Completed/Discontinued Medications Medication Drug Class(es) Dates Sig (Normalized) Sig (Original) busPIRone hydrochloride 7.5 mg oral tablet (3 sources) Start: 10-01-2021 busPIRone (BUSPAR) 7.5 mg tablet drospirenone / Ethinyl Estradiol (14 sources) Progestin, Estrogen Start: 10-14-2021 take 1 tablet by mouth once daily, then take 1 tablet by mouth every three months Drospirenone-Ethiny l Estradiol (ARIS, 28,) 3-0.02 mg per tablet Indications: Encounter for initial prescription of contraceptive pills , Endometriosis , Chronic pelvic pain in female , DUB (dysfunctional uterine bleeding) Take 1 tablet by mouth once daily. Skip the placebo pill so that you have a period every 3 months. 84 tablet 3 10/14/2021 Active Problems Active Problems Problem Classification Problem Date Documented Date Episodic/Chronic Endometriosis (3 sources) Endometriosis (clinical); Translations: [Endometriosis, unspecified] Chronic Immunizations and screening for infectious disease (3 sources) Patient encounter status; Translations: [Encounter for screening for human papillomavirus (HPV)] Episodic Menstrual disorders (4 sources) Irregular periods; Translations: [Irregular menstruation, unspecified] Onset: 07-03-2021 Chronic Other and unspecified benign neoplasm (1 source) Fibroadenoma of left breast; Translations: [Benign neoplasm of left breast] Episodic Other female genital disorders (3 sources) Abnormal uterine bleeding; Translations: [Other specified abnormal uterine and vaginal bleeding] Chronic Other female genital disorders (1 source) Other specified abnormal uterine and vaginal bleeding; Translations: [DUB (dysfunctional uterine bleeding)] Onset: 07-10-2021 Chronic Other female genital disorders (1 source) Finding of contents of uterus; Translations: [Noninflammatory disorder of uterus, unspecified] Episodic Other female genital disorders (1 source) History of endometriosis; Translations: [Personal history of other diseases of the female genital tract] Episodic Past or Other Problems Problem Classification Problem Date Documented Date Episodic/Chronic Abdominal pain (5 sources) Pain in female pelvis; Translations: [Pelvic and perineal pain] Onset: 07-10-2021 Episodic Genitourinary symptoms and ill-defined conditions (2 sources) Dysuria; Translations: [Unspecified symptoms and signs involving the genitourinary system] Onset: 01-26-2022 Episodic Nonmalignant breast conditions (6 sources) Lump in upper outer quadrant of left breast; Translations: [Unspecified lump in the left breast, upper outer quadrant] Onset: 08-11-2021 Episodic Other female genital disorders (1 source) Personal history of other diseases of the female genital tract; Translations: [History of endometriosis] Onset: 07-10-2021 Episodic Other screening for suspected conditions (not mental disorders or infectious disease) (4 sources) Cancer cervix screening status; Translations: [Encounter for screening for malignant neoplasm of cervix] Onset: 08-31-2021 Episodic Residual codes; unclassified (1 source) Other specified postprocedural states; Translations: [History of loop electrical excision procedure (LEEP)] Onset: 07-10-2021 Episodic Results Test Name Value Interpretation Reference Range Facil ity Vital Signs Date Time Vital Sign Value Performing Clinician Nathan dubose 10-12-2021 14:11-0400 Body weight 75.75 kg Cecille Parks MD Work Phone: [facility] 10-12-2021 14:11-0400 Diastolic blood pressure 82 mm[Hg] Cecille Parks MD Work Phone: [facility] 10-12-2021 14:11-0400 Systolic blood pressure 120 mm[Hg] Cecille Parks MD Work Phone: [facility] 09-21-2021 10:58-0400 Body height 157.5 cm Cecille Parks MD Work Phone: [facility] 09-21-2021 10:58-0400 Body weight 75.93 kg Cecille Parks MD Work Phone: [facility] 09-21-2021 10:58-0400 Diastolic blood pressure 80 mm[Hg] Cecille Parks MD Work Phone: [facility] 09-21-2021 10:58-0400 Heart rate 82 /min Cecille Parks MD Work Phone: [facility] 09-21-2021 10:58-0400 Respiratory rate 16 /min Cecille Parks MD Work Phone: [facility] 09-21-2021 10:58-0400 SaO2% (BldA) [Mass fraction] 98 % Cecille Parks MD Work Phone: [facility] 09-21-2021 10:58-0400 Systolic blood pressure 116 mm[Hg] Cecille Parks MD Work Phone: [facility] 09-04-2021 13:23-0400 Body height 160 cm Mariluz Baker MD Work Phone: [facility] 09-04-2021 13:23-0400 Body temperature 98.49 [degF] Mariluz Baker MD Work Phone: [facility] 09-04-2021 13:23-0400 Body weight 76.66 kg Mariluz Baker MD Work Phone: [facility] 09-04-2021 13:23-0400 Diastolic blood pressure 82 mm[Hg] Mariluz Baker MD Work Phone: [facility] 09-04-2021 13:23-0400 Heart rate 101 /min Mariluz Baker MD Work Phone: [facility] 09-04-2021 13:23-0400 SaO2% (BldA) [Mass fraction] 98 % Mariluz Baker MD Work Phone: [facility] 09-04-2021 13:23-0400 Systolic blood pressure 126 mm[Hg] Mariluz Baker MD Work Phone: [facility] 08-14-2021 16:01-0400 Body height 160 cm Mariluz Baker MD Work Phone: [facility] 08-14-2021 16:01-0400 Body temperature 97.5 [degF] Mariluz Baker MD Work Phone: [facility] 08-14-2021 16:01-0400 Body weight 77.02 kg Mariluz Baker MD Work Phone: [facility] 08-14-2021 16:01-0400 Diastolic blood pressure 80 mm[Hg] Mariluz Baker MD Work Phone: [facility] 08-14-2021 16:01-0400 Heart rate 103 /min Mariluz Baker MD Work Phone: [facility] 08-14-2021 16:01-0400 SaO2% (BldA) [Mass fraction] 97 % Mariluz Baker MD Work Phone: [facility] 08-14-2021 16:01-0400 Systolic blood pressure 124 mm[Hg] Mariluz Baker MD Work Phone: [facility] 07-03-2021 09:11-0400 Body height 160 cm Cecille Parks MD Work Phone: [facility] 07-03-2021 09:11-0400 Body weight 77.11 kg Cecille Parks MD Work Phone: [facility] 07-03-2021 09:11-0400 Diastolic blood pressure 70 mm[Hg] Cecille Parks MD Work Phone: [facility] 07-03-2021 09:11-0400 Systolic blood pressure 110 mm[Hg] Cecille Parks MD Work Phone: [facility] Encounters Encounter Date Encounter Type Care Provider Facility Start: 02-14-2023 Telephone encounter Echo Cochran tthews PHOTOGRAPH INSPECTOR.ENERGY AUDIT ADVISOR Work Phone: [facility] Procedures Date Procedure Procedure Detail Performing Clinician Start: 01-17-2023 Urinalysis ECHO NATHAN Plan of Treatment Date Care Activity Detail Author Start: 07-03-2026 HPV TESTING HPV TESTING [facility] Start: 07-03-2026 PAP TESTING PAP TESTING [facility] Start: 11-05-2022 Influenza vaccination Influenza Vacc ine (#1) [facility] Start: 03-07-2022 Depression Assessment Depression Ass essment [facility] Start: 11-05-2021 Influenza vaccination [facility] Start: 07-03-2021 End: 09-02-2021 Choriogonadotropin.beta subunit [Units/volume] in Serum or Plasma [facility] Work Phone: Payers Date Payer Category Payer Unknown [employer] [id number] 2021-Present [phone] [address] [place] [address] PPO [id number] 2021 Unknown [id number] 2021 Unknown [id number] 1988 Unknown [id number] 1988 Unknown [id number] 1988 Unknown [id number] 1988 Unknown [id number] 1988 Unknown [id number] 1988 Unknown [id number] 1988 Unknown [id number] Social History Date Type Detail Facility Start: 03-24-2016 End: 10-12-2021 Tobacco smoking status NHIS Never smoked tobacco [facility] Start: 03-24-2016 End: 10-12-2021 Tobacco use and exposure Smokeless tobacco non-user [facility] Start: 07-03-2021 End: 10-12-2021 Alcohol intake Current drinker of alcohol (finding) [facility] Start: 07-03-2021 History SDOH Alcohol Comment rare [facility] Start: 1990 Sex Assigned At Not on file [facility] Start: 06-22-2021 End: 10-12-2021 Exposure to SARS-CoV-2 (event) Not sure [facility] Work Phone: Start: 10-12-2021 History of Social function [facility] Start: 10-12-2021 Tobacco use panel [facility] Clinical Notes 07-03-2021 to 02-14-2023 Telephone Encounter - Sherry Nicholas - 02/14/2023 4:22 PM ESTTelephone Encounter - Hazel Rivera RN - 10/14/2021 9:36 AM EDTTelephone Encounter - Cecille Parks MD - 10/14/2021 9:02 AM EDT Note Date & Type Note Facility 02-14-2023 Miscellaneous Notes Spoke to Pt about the referral for Vascular and she advised that she wanted to be seen in [place]. I provided the number for Dr. Brianne Metcalf #[phone] and scanned referral in chart. PerJM the referral is better suited for Cardiology. Referral from Echo Moscoso [facility] #[phone] - Atherosclerosis of Aorta. documented in this encounter [facility] 10-14-2021 Miscellaneous Notes Thank you. Can you please cancel previous RX and sign new updated RX. Requested Prescriptions Pending Prescriptions Disp Refills Drospirenone-Ethinyl Estradiol (ARIS, 28,) 3-0.02 mg per tablet 84 tablet 3 Sig: Take 1 tablet by mouth once daily. Skip the placebo pill so that you have a period every 3 months. Hazel Rivera RN Extended use to have menses q 3 months. To have 3 packs sorry [facility] pharmacy called. OCP RX written for 54 tablets. Pharmacy needing clarification on quantity. Patient is skipping placebo pills. Do you want her to have 3 packs? Or perhaps 4 packs since she is skipping placebo pills? Hazel Rivera RN documented in this encounter [facility] 10-12-2021 Note HNO ID: [id number] Author: Cecille Parks MD Service: ? Author Type: Physician Type: Progress Notes Filed: 10/14/2021 1:17 PM Note Text: DATE OF SERVICE: 10/12/2021 PROBLEM: Clau Gandhi presents for postop visit. SURGERY AND DATE: Hysteroscopy [facility] PATHOLOGY: Benign SUBJECTIVE/INTERVAL HISTORY: Clau Gandhi reports that she feels well. No fever or chills. No pain, bleeding, discharge, N/V. OBJECTIVE: VITALS: BP 120/82 Wt 167 lb (75.8 kg) LMP 05/14/2021 BMI 30.54 kg/m? HEENT: Normocephalic and atraumatic LOWER EXTREMITIES: No pitting edema. ASSESSMENT: Post op doing well PLAN: Reviewed surgery and pathology findings She is not interested in pursuing a hysterectomy at this time Desires to start CHC which is reasonable. Was on Gianvi before in past and did well on this. Rx sent to start and RTO for follow up Cecille Parks DO [facility] 10-12-2021 Instructions Cecille Parks MD - 10/12/2021 2:27 PM EDT [facility] Oral contraceptives or control pills contain synthetic hormones that act similarly to the hormones the body produces. When used consistently and correctly, control pills: 1) prevent the ovaries from releasing the egg 2) alter the cervical mucous so that sperm cannot penetrate the egg, or 3) change the uterine lining to prevent the implantation of a fertilized egg. Instructions: Read the package insert for the control pill you are taking. Another method of control should be used during the first month of taking the Pill to provide protection from . Other methods, such as foam and condoms should be used until the second month and as a back-up method in case you run out of pills, miss taking a pill or decide to stop taking the Pill. Take the first pill on the first Tuesday after the first day of your menstrual period or as directed by your physician. If your period should start on a Tuesday, start the Pill that day. Your healthcare provider may prescribe a: 21 day pack where you will take a pill each day for 21 days, stop for 7 days (your menstrual period should begin) and then start the next pack on the day; or, 28 day pack where you take a pill every day for 28 days. Your menstrual period should begin sometime during the last 7 days of pill taking (these pills will be a different color). Take your pill each day at the same time. Do Not Skip Pills. Check and re-check the pack each day to make certain you have taken that day's dosage. IF YOU FORGET TO TAKE ONE PILL, take it as soon as you remember, or if you don't remember until the next day, take the missed pill along with the current day's pill. Use additional control protection for the remainder of the pack. IF YOU FORGET TO TAKE TWO PILLS, take 2 pills daily for the next 2 days at your regular time. Use protection for the remainder of the pill pack. Do Not take more than 2 pills in one day. IF YOU MISS 3 OR MORE PILLS IN A ROW, stop taking the pills immediately and begin using a second method of control. The risk of is greatly increased. Stop using the old pack of pills, wait for withdrawal bleeding and begin the new cycle as directed. Some common symptoms you may experience during the first 2-3 cycles of pill taking are: nausea - try taking the pill in the evening breast tenderness and swelling bloating and 5-7 lbs weight gain intermittent vaginal spotting or bleeding operational test mechanic and shorter menstrual periods (possibly a missed period). Contact your physician if you experience any of the following: severe abdominal pain severe chest pain or shortness of breath persistent, severe headaches unrelieved by Aspirin or Tylenol and rest accompanied by dizziness, weakness, numbness eye problems such as blurred vision or loss of vision severe pain, swelling, redness,or tenderness in legs. If you think you are , call your provider's office. You will need to have a test done if you have missed your menstrual period after your first cycle of pills and if you have not had a menstrual flow for two consecutive months. Side effects from taking Oral Contraceptives may include depression, fatigue, and decreased sex drive. See your doctor if these symptoms or mood changes occur. Always let your healthcare providers know that you are taking Oral Contraception. It is a medication and should be noted in your health record for any provider you see. Always know the name and dosage of your pill. Certain medications may interfere with the effectiveness of the pill or may cause an increase in breakthrough bleeding. Barbituates and Dilantin and some antibiotics such as Ampicillin, Rifampin, and Erythromycin are some drugs that may decrease the efficacy. Use a back-up method of contraception when taking any medications that can decrease the pill's effectiveness. documented in this encounter [facility] 10-12-2021 History of Presen t illness Narrative DATE OF SERVICE: 10/12/2021 PROBLEM: Clau Gandhi presents for postop visit. SURGERY & DATE: Hysteroscopy D&C PATHOLOGY: Benign SUBJECTIVE/INTERVAL HISTORY: Clau Gandhi reports that she feels well. No fever or chills. No pain, bleeding, discharge, N/V. OBJECTIVE: VITALS: BP 120/82 Wt 167 lb (75.8 kg) LMP 05/14/2021 BMI 30.54 kg/m HEENT: Normocephalic and atraumatic LOWER EXTREMITIES: No pitting edema. ASSESSMENT: Post op doing well PLAN: Reviewed surgery and pathology findings She is not interested in pursuing a hysterectomy at this time Desires to start CHC which is reasonable. Was on Gianvi before in past and did well on this. Rx sent to start and RTO for follow up Cecille Parks DO documented in this encounter [facility] 09-21-2021 History and physical note DATE OF SERVICE: September 21, 2021 PROBLEM: DUB, heterogenous endometrium with fluid present on US, chronic pelvic pain, h/o endometriosis, h/o uterine polyps DIAGNOSIS: As above PAST SURGICAL HISTORY: PAST SURGICAL HISTORY Procedure Laterality Date CERVIX UTERI CONIZA LP ELCTRO EXCI PAST SURGICAL HISTORY OF Laproscopy for endometriosis PT ED OBSTETRICS & GYNECOLOGY TUBAL LIGATION HX 2009 PAST MEDICAL HISTORY: PAST MEDICAL HISTORY Diagnosis Date Abnormal Pap smear of cervix H/O LEEP 2009 SUBJECTIVE: Just finishing heavy menses. No changes since last visit. Still interested in hysterectomy but having difficulty finding a surgeon covered by her insurance, and is not interested in being off from work for a major surgery at this time. Would like to proceed with further evaluation of endometrium and restart CHC until she is able to have hysterectomy. She is not interested in an in office hysteroscopy, as she reports a sensitive cervix and would rather have evaluation completed under anesthesia. SOCIAL HISTORY: Social History Tobacco Use Smoking status: Never Smoker Smokeless tobacco: Never Used Vaping Use Vaping Use: Never used Substance Use Topics Alcohol use: Yes Comment: rare Drug use: No Current Outpatient Medications on File Prior to Visit Medication Sig pantoprazole DR (PROTONIX) 40 mg tablet Take 40 mg by mouth once daily. Drospirenone-Ethinyl Estradiol (GIANVI, 28,) 3-0.02 mg per tablet Take 1 tablet by mouth once daily. (Patient not taking: Reported on 07/03/2021 ) No current facility-administered medications on file prior to visit. ALLERGIES No Known Allergies OBJECTIVE: VITALS: BP 116/80 Pulse 82 Resp 16 Ht 5' 2 (1.575 m) Wt 167 lb 6.4 oz (75.9 kg) LMP 05/14/2021 SpO2 98% BMI 30.62 kg/m HEENT: Normocephalic, atraumatic, Mucus membranes moist without lesions. SKIN: No lesions. CHEST: Clear to auscultation. No wheezes or rales. Good air exchange. HEART: Regular rate and rhythm No S3 or S4. No gallops or rubs. ABDOMEN: Soft, non-distended. LOWER EXTREMITIES: There was no edema and no skin changes. ASSESSMENT: DUB, heterogenous endometrium with fluid present on US, chronic pelvic pain, h/o endometriosis, h/o uterine polyps PLAN: 1) Discussed hysteroscopy, possible polypectomy, D&C. She understands a D&C is not senior care treatment for DUB. She also understands there may not be a polyp present at time of surgery. She declines in office Endosee to evaluate endometrium further. Patient is not interested in progesterone IUD. She would like to restart CHC after surgery, as she did well on ocp in past. Discussed possible cervical stenosis at time of surgery given h/o LEEP. The rationale for the proposed surgery was discussed in addition to risks, benefits, and alternatives. General pre- and post-operative care was reviewed. Questions were answered. After discussion, the patient indicated a desire to proceed with the planned surgery. Cecille Parks DO Medical Decision Making: Problems: Low: Stable chronic illness Moderate: New problem with uncertain prognosis Risk: Moderate: Decision on minor surgery w/ risk factors Medical Decision Making Level: 4 - Moderate documented in this encounter [facility] 09-05-2021 Note HNO ID: [id number] Author: Mariluz Baker MD Service: ? Author Type: Physician Type: Procedures Filed: 09/05/2021 3:14 PM Note Text: Ultrasound guided breast needle core biopsy with vacuum assistance Indications - BIRADS 4 breast lesion Description of procedure - After informed consent was obtained, patient was brought to the Procedure Room. Appropriate time out protocol was followed. The patient was placed in the supine position. A slightly right/left lateral position was used, to allow for better access to the lesion. The ultrasound machine was used for identification of the lesion and facilitation of the biopsy in real time imaging. The lesion was identified in the right/left breast. It was at the 12 o'clock position, 4 cm from the nipple, about mid depth. The lesion was measured at about 2 cm in size. The transducer was held in the transverse position. The skin was cleansed with a surgical skin preparation. The skin and subcutaneous tissues were infiltrated with 1% xylocaine. A total of 9 ml was used. A small skin jerry was made lateral to the lesion with an 11 blade scalpel. The Mammotome Elite device was then positioned into the patient's breast at the lesion site. Ultrasound imaging pictures were captured. Using the vacuum suctioning of the Mammotome device, several core samples of breast tissue were obtained. This was done, simultaneously visualizing with the ultrasound transducer. Once adequate sampling was determined to be done, the Mammotome device was removed and a marker clip was placed at the biopsy site, using ultrasound transducer guidance. Hemostasis was achieved by pressure. No evidence of active bleeding was noted after pressure applied for a period of time. Steristrips were placed to reapproximate the wound edges. Sterile dressing was applied over this. Patient tolerated procedure well. Complications - none EBL - minimal [facility] 09-05-2021 Procedure note Procedure(s): BX BREAST W/DEVICE 1ST LESION ULTRASOUND GUID Pre-Procedure Diagnose(s): Abnormal ultrasound of breast Post-Procedure Diagnose(s): Abnormal ultrasound of breast Ultrasound guided breast needle core biopsy with vacuum assistance Indications - BIRADS 4 breast lesion Description of procedure - After informed consent was obtained, patient was brought to the Procedure Room. Appropriate time out protocol was followed. The patient was placed in the supine position. A slightly right/left lateral position was used, to allow for better access to the lesion. The ultrasound machine was used for identification of the lesion and facilitation of the biopsy in real time imaging. The lesion was identified in the right/left breast. It was at the 12 o'clock position, 4 cm from the nipple, about mid depth. The lesion was measured at about 2 cm in size. The transducer was held in the transverse position. The skin was cleansed with a surgical skin preparation. The skin and subcutaneous tissues were infiltrated with 1% xylocaine. A total of 9 ml was used. A small skin jerry was made lateral to the lesion with an 11 blade scalpel. The Mammotome Elite device was then positioned into the patient's breast at the lesion site. Ultrasound imaging pictures were captured. Using the vacuum suctioning of the Mammotome device, several core samples of breast tissue were obtained. This was done, simultaneously visualizing with the ultrasound transducer. Once adequate sampling was determined to be done, the Mammotome device was removed and a marker clip was placed at the biopsy site, using ultrasound transducer guidance. Hemostasis was achieved by pressure. No evidence of active bleeding was noted after pressure applied for a period of time. Steristrips were placed to reapproximate the wound edges. Sterile dressing was applied over this. Patient tolerated procedure well. Complications - none EBL - minimal documented in this encounter [facility] 09-04-2021 Note HNO ID: [id number] Author: Mariluz Baker MD Service: ? Author Type: Physician Type: Progress Notes Filed: 09/05/2021 4:03 PM Note Text: ESTABLISHED PATIENT BREAST Clau is s/p left US guided breast biopsy done on 08/31/2021 Pathology reveals: Breast, left, ultrasound-guided core biopsy:--Fibroadenoma. Patient denies any problems. PMH/PSH - unchanged from previous note Review of systems: denies fevers Examination: wound is healing well, no evidence of infection Ecchymoses present, no hematoma Impression: fibroadenoma Plan: I have explained to patient that she may return to routine breast screening mammograms in a year. This can be accomplished by her PCP Follow up with me sooner if worsening signs/symptoms. Patient to return to her primary physician for medical care. I have answered all of patient's questions and she has no further questions. I spent a total of 10 minutes on the date of the service which included preparing to see the patient with review of any pertinent laboratory studies/radiological imaging/medical records, [id number] patient care, obtaining oral medical history from the patient in this encounter, performing a medically appropriate examination, counseling and educating the patient/family/caregiver, and completing appropriate medical documentation. [facility] 09-04-2021 History of Presen t illness Narrative ESTABLISHED PATIENT BREAST Clau is s/p left US guided breast biopsy done on 08/31/2021 Pathology reveals: Breast, left, ultrasound-guided core biopsy:--Fibroadenoma. Patient denies any problems. PMH/PSH - unchanged from previous note Review of systems: denies fevers Examination: wound is healing well, no evidence of infection Ecchymoses present, no hematoma Impression: fibroadenoma Plan: I have explained to patient that she may return to routine breast screening mammograms in a year. This can be accomplished by her PCP Follow up with me sooner if worsening signs/symptoms. Patient to return to her primary physician for medical care. I have answered all of patient's questions and she has no further questions. I spent a total of 10 minutes on the date of the service which included preparing to see the patient with review of any pertinent laboratory studies/radiological imaging/medical records, [id number] patient care, obtaining oral medical history from the patient in this encounter, performing a medically appropriate examination, counseling and educating the patient/family/caregiver, and completing appropriate medical documentation. documented in this encounter [facility] 08-31-2021 Note HNO ID: [id number] Author: Mariluz Baker MD Service: ? Author Type: Physician Type: Progress Notes Filed: 09/05/2021 3:14 PM Note Text: Here for US guided left needle core breast biopsy. She tolerated procedure well. Follow up later this week for wound check and discussion of pathology results. [facility] 08-31-2021 History of Presen t illness Narrative Here for US guided left needle core breast biopsy. She tolerated procedure well. Follow up later this week for wound check and discussion of pathology results. UNIVERSAL PROTOCOL / SAFETY CHECKLIST Procedure to be Performed: US guided left breast needle core biopsy Sign In: A Moment of CARE was completed. Personnel directly involved with the procedure wore the appropriate PPE (Personal Protective Equipment). Special equipment: MEP13 mammotome Patient/Surrogate Stated/Verified: PATIENT VERIFIED(optional for EMERGENT procedures): Patient name, Date of , Relevant allergies and The intended procedure Time Out Communication: Intended patient and procedure match the source documents. Consent documented and matches the intended procedure. Relevant labs, photos, and/or imaging studies have been reviewed. Correct side/site marked and visible. Medications required for procedure verified. No fire risk assessment and interventions applicable. Implant(s) inserted: Correct implant(s) confirmed including size and side. and Expiration date(s) reviewed. Sign Out: SIGN OUT (optional for EMERGENT procedures): All specimen containers correctly labeled. Indigo Jacob documented in this encounter [facility] 08-31-2021 Note HNO ID: [id number] Author: Indigo Jacob Service: ? Author Type: ? Type: Progress Notes Filed: 08/31/2021 3:13 PM Note Text: UNIVERSAL PROTOCOL / SAFETY CHECKLIST Procedure to be Performed: US guided left breast needle core biopsy Sign In: A Moment of CARE was completed. Personnel directly involved with the procedure wore the appropriate PPE (Personal Protective Equipment). Special equipment: MEP13 mammotome Patient/Surrogate Stated/Verified: PATIENT VERIFIED(optional for EMERGENT procedures): Patient name, Date of , Relevant allergies and The intended procedure Time Out Communication: Intended patient and procedure match the source documents. Consent documented and matches the intended procedure. Relevant labs, photos, and/or imaging studies have been reviewed. Correct side/site marked and visible. Medications required for procedure verified. No fire risk assessment and interventions applicable. Implant(s) inserted: Correct implant(s) confirmed including size and side. and Expiration date(s) reviewed. Sign Out: SIGN OUT (optional for EMERGENT procedures): All specimen containers correctly labeled. Indigo Jacob [facility] 08-31-2021 Instructions Indigo Jacob - 08/31/2021 3:26 PM EDT The following instructions are important for you related to your office visit today with the [facility]. Instructions After OFFICE BASED BREAST BIOPSY Please do not take aspirin or other blood thinners for the next few days. After the procedure, Steri-Strips and a dressing will be placed on your small incision. The dressing may be removed in two to three days after the procedure. The Steri-Strips should be left in place until they fall off. If you have bleeding from the biopsy site, hold pressure with a clean gauze. If the bleeding continues, contact our office immediately. I recommend taking Advil or Tylenol for the discomfort. You should wear a comfortable but somewhat tight fitting bra. If you have significant bruising, an ice pack may improve your discomfort. Please make an appointment to return to our office in 4 days. If you note any additional difficulties, questions, or concerns, you should contact our office immediately @ [phone] and ask to be transferred to the General Surgery department. documented in this encounter [facility] 08-14-2021 Note HNO ID: [id number] Author: Mariluz Baker MD Service: ? Author Type: Physician Type: Progress Notes Filed: 08/16/2021 9:21 AM Note Text: HISTORY AND PHYSICAL Clau Gandhi 1990 REFERRING PHYSICIAN: Cecille Parks MD CHIEF COMPLAINT: Consult (left breast nodule) HPI: The patient is a 31 year old female presents with abnormal left breast ultrasound She also notes a palpable left breast mass and this correlates to the ultrasound findings. She does not recall how long she has noted this. She denies nipple discharge. She denies previous breast biopsies or breast surgeries. She denies breast or ovarian cancer in the immediate family. She has a history of cervical cancer. Mammograms 08/11/2021 There is a 2 cm oval equal density mass with a circumscribed margin in the left breast at 12 o'clock middle depth. No other significant masses, calcifications, or other findings are seen in either breast. US 08/11/2021 There is 1.8 cm x 1 cm x 1.7 cm oval mass with a circumscribed margin in the left breast at 12 o'clock middle depth 4 cm from the nipple. ?This oval mass is hypoechoic with internal echoes. ?This correlates with mammography findings. IMPRESSION: SUSPICIOUS FINDING - BIOPSY SHOULD BE CONSIDERED The 1.8 cm x 1 cm x 1.7 cm oval mass in the left breast is suspicious of malignancy. ?An ultrasound guided biopsy is recommended. PAST MEDICAL HISTORY Diagnosis Date - Abnormal Pap smear of cervix - H/O LEEP 2010 PAST SURGICAL HISTORY Procedure Laterality Date - CERVIX UTERI CONIZA LP ELCTRO EXCI - PAST SURGICAL HISTORY OF Laproscopy for endometriosis - PT ED OBSTETRICS AND GYNECOLOGY - TUBAL LIGATION HX 2009 Current Outpatient Medications Medication Sig - Drospirenone-Ethinyl Estradiol (Ralf HURST,) 3-0.02 mg per tablet Take 1 tablet by mouth once daily. (Patient not taking: Reported on 07/03/2021 ) ALLERGIES: Patient has no known allergies. PERSONAL HISTORY: Social History Tobacco Use - Smoking status: Never Smoker - Smokeless tobacco: Never Used Vaping Use - Vaping Use: Never used Substance Use Topics - Alcohol use: Yes Comment: rare - Drug use: No FAMILY HISTORY Problem Relation Age of Onset - No Known Problems Mother - Heart Father - Hypertension Father - Hyperlipidemia Father - No Known Problems Brother - No Known Problems Brother - No Known Problems Brother - Hypertension Maternal Grandmother - Diabetes Maternal Grandmother - No Known Problems Maternal Grandfather - No Known Problems Paternal Grandmother - No Known Problems Paternal Grandfather The review of systems data was entered by the nurse and reviewed by mn Nursing Notes: Laura Toussaint RN 08/14/2021 4:03 PM Signed REVIEW OF SYSTEMS: General: The patient denies fatigue, denies weight loss, denies weight gain, denies feeling hot, and denies feelings of cold. Eyes: The patient denies glaucoma, denies eye injury/surgery, does not wear glasses or contacts. Ear/Nose/Throat: The patient NOTES allergies, denies hayfever, denies ear infections, and denies bloody noses. Cardiovascular: The patient denies chest pain, denies heart disease, denies high blood pressure,denies cardiac stent, denies prior heart attack, denies irregular heart beat, NOTES high cholesterol, denies poor circulation, denies heart failure, other cardiac issues, denies claudication, denies cold feet, denies peripheral arterial stent. Respiratory: The patient denies tuberculosis, denies pneumonia, denies frequent cough, denies pulmonary embolism, denies shortness of breath, and denies coughing up blood. Gastrointestinal: The patient denies difficulty swallowing, denies acid reflux, denies ulcers, denies vomiting, denies jaundice/hepatitis, denies gallbladder problems, denies black or tarry stools, denies hemorrhoids, denies bleeding from rectum, denies diverticulitis, denies constipation, denies diarrhea, denies loss of stool control, and denies hernias. Kidney/Bladder: The patient denies kidney stones, NOTES urine infections, and denies bloody urine. Skin: The patient denies a history of skin cancer, denies bleeding/changing moles, and denies a history of skin rash. Neurologic: The patient denies a history of epilepsy/convulsions, denies headaches, denies head/spinal injuries, and denies stroke/TIA. Psychiatric: The patient denies psychiatric medications, denies depression, and denies voices, denies substance abuse. Endocrine: The patient denies thyroid disorders, denies diabetes, and denies hormonal problems. Hematologic: The patient denies a history of bruising, denies bleeding, and denies anemia, denies blood clots. Infections: The patient denies a history of measles and mumps, denies rheumatic fever, and denies sexually transmitted diseases. Musculoskeletal: The patient denies back pain/injury, denies back problems, denies sciatica, denies knee/foot trouble, isidro (more content not included)... [facility] 08-14-2021 History of Presen t illness Narrative HISTORY AND PHYSICAL Clau Gandhi 1990 REFERRING PHYSICIAN: Cecille Parks MD CHIEF COMPLAINT: Consult (left breast nodule) HPI: The patient is a 31 year old female presents with abnormal left breast ultrasound She also notes a palpable left breast mass and this correlates to the ultrasound findings. She does not recall how long she has noted this. She denies nipple discharge. She denies previous breast biopsies or breast surgeries. She denies breast or ovarian cancer in the immediate family. She has a history of cervical cancer. Mammograms 08/11/2021 There is a 2 cm oval equal density mass with a circumscribed margin in the left breast at 12 o'clock middle depth. No other significant masses, calcifications, or other findings are seen in either breast. US 08/11/2021 There is 1.8 cm x 1 cm x 1.7 cm oval mass with a circumscribed margin in the left breast at 12 o'clock middle depth 4 cm from the nipple. This oval mass is hypoechoic with internal echoes. This correlates with mammography findings. IMPRESSION: SUSPICIOUS FINDING - BIOPSY SHOULD BE CONSIDERED The 1.8 cm x 1 cm x 1.7 cm oval mass in the left breast is suspicious of malignancy. An ultrasound guided biopsy is recommended. PAST MEDICAL HISTORY Diagnosis Date Abnormal Pap smear of cervix H/O LEEP 2009 PAST SURGICAL HISTORY Procedure Laterality Date CERVIX UTERI CONIZA LP ELCTRO EXCI PAST SURGICAL HISTORY OF Laproscopy for endometriosis PT ED OBSTETRICS & GYNECOLOGY TUBAL LIGATION HX 2009 Current Outpatient Medications Medication Sig Drospirenone-Ethinyl Estradiol (GIANYOANDY, 28,) 3-0.02 mg per tablet Take 1 tablet by mouth once daily. (Patient not taking: Reported on 07/03/2021 ) ALLERGIES: Patient has no known allergies. PERSONAL HISTORY: Social History Tobacco Use Smoking status: Never Smoker Smokeless tobacco: Never Used Vaping Use Vaping Use: Never used Substance Use Topics Alcohol use: Yes Comment: rare Drug use: No FAMILY HISTORY Problem Relation Age of Onset No Known Problems Mother Heart Father Hypertension Father Hyperlipidemia Father No Known Problems Brother No Known Problems Brother No Known Problems Brother Hypertension Maternal Grandmother Diabetes Maternal Grandmother No Known Problems Maternal Grandfather No Known Problems Paternal Grandmother No Known Problems Paternal Grandfather The review of systems data was entered by the nurse and reviewed by mn Nursing Notes: Laura Toussaint RN 08/14/2021 4:03 PM Signed REVIEW OF SYSTEMS: General: The patient denies fatigue, denies weight loss, denies weight gain, denies feeling hot, and denies feelings of cold. Eyes: The patient denies glaucoma, denies eye injury/surgery, does not wear glasses or contacts. Ear/Nose/Throat: The patient NOTES allergies, denies hayfever, denies ear infections, and denies bloody noses. Cardiovascular: The patient denies chest pain, denies heart disease, denies high blood pressure,denies cardiac stent, denies prior heart attack, denies irregular heart beat, NOTES high cholesterol, denies poor circulation, denies heart failure, other cardiac issues, denies claudication, denies cold feet, denies peripheral arterial stent. Respiratory: The patient denies tuberculosis, denies pneumonia, denies frequent cough, denies pulmonary embolism, denies shortness of breath, and denies coughing up blood. Gastrointestinal: The patient denies difficulty swallowing, denies acid reflux, denies ulcers, denies vomiting, denies jaundice/hepatitis, denies gallbladder problems, denies black or tarry stools, denies hemorrhoids, denies bleeding from rectum, denies diverticulitis, denies constipation, denies diarrhea, denies loss of stool control, and denies hernias. Kidney/Bladder: The patient denies kidney stones, NOTES urine infections, and denies bloody urine. Skin: The patient denies a history of skin cancer, denies bleeding/changing moles, and denies a history of skin rash. Neurologic: The patient denies a history of epilepsy/convulsions, denies headaches, denies head/spinal injuries, and denies stroke/TIA. Psychiatric: The patient denies psychiatric medications, denies depression, and denies voices, denies substance abuse. Endocrine: The patient denies thyroid disorders, denies diabetes, and denies hormonal problems. Hematologic: The patient denies a history of bruising, denies bleeding, and denies anemia, denies blood clots. Infections: The patient denies a history of measles and mumps, denies rheumatic fever, and denies sexually transmitted diseases. Musculoskeletal: The patient denies back pain/injury, denies back problems, denies sciatica, denies knee/foot trouble, denies arthritis, or denies gout. Gynecological: menarche onset at age 11, , first at age 14, breast feeding 6 weeks, BCP use initially at age 15 < 1y, then Depo for 3 y, then mirena IUD, had endometriosis When was patient's last Mammogram screening? 2021 Last Colonoscopy: none Laura Toussaint RN PHYSICAL EXAMINATION: General: The patient is 31 year old female, well nourished, well hydrated in no acute distress. The patient is oriented to time, place, and person. VITALS: Blood pressure 124/80, pulse 103, temperature 36.4 C (97.5 F), height 160 cm (5' 3 ), weight 77 kg (169 lb 12.8 oz), last menstrual period 05/14/2021, SpO2 97 %. Body mass index is 30.08 kg/m . Head Normocephalic. EOM intact with sclera clear and no icterus noted. . Neck - supple with no jugular venous distention noted. Trachea is midline. No thyroid enlargement or thyroid nodules detected. No masses noted. Chest/breast no asymmetry of breasts noted, no suspicious skin lesions noted, no nipple discharge and both nipples everted, palpable breast lesion of upper outer quadrant of left breast Lungs clear to auscultation. Normal breath sounds. No rales/rhonchi/wheezing noted. No labored breathing noted, such as retractions. No cough heard. Heart normal S1 and S2 auscultated. No rubs/clicks/murmurs noted. Regular rate. Abdomen soft and benign. Difficult to determine if any masses or organomegaly due to body habitus. Extremities no calf tenderness noted. No pitting edema noted. Skin normal skin integrity. Lymph no cervical adenopathy detected, no supraclavicular adenopathy detected, no axillary adenopathy detected Neurological gait normal, no focal deficits noted Psych calm and appropriate RADIOLOGIC STUDIES: As Noted Assessment IMPRESSION: abnormal left breast radiographs, left breast mass PLAN: I have discussed the above with the patient. I have offered US guided left breast needle core biopsy.. I have explained the procedure to the patient. I have counseled the patient as to the risks of the procedure, including but not limited to: infection, bleeding, injury to any blood vessels/nerves, scar tissue, wound infections, complications of anesthesia, etc. the patient understands. She does not want excisional biopsy for this palpable mass. The patient wishes to proceed. I have answered all questions to the patient s satisfaction and the patient has no further questions. I have confirmed and edited as necessary, the PFSH and ROS obtained by others. Consultation requested by Dr. Cecille Parks for an opinion regarding patient's left breast mass and abnormal left breast radiographs. My final recommendations will be communicated back to the requesting physician by way of shared Medical record or letter to requesting physician via [place] mail. . Diagnoses: (N63.21) Mass of upper outer quadrant of left breast (primary encounter diagnosis) (R92.8) Abnormal ultrasound of breast Return to Clinic: The patient is scheduled for US guided left breast needle core biopsy on August 28 in the clinic. Medical Decision Making: Problems: Moderate: New problem with uncertain prognosis Data: Unique test result(s) reviewed: 1 Risk: Low: Low risk from testing/treatment Medical Decision Making Level: 3 - Low Mariluz Baker MD documented in this encounter [facility] 08-14-2021 Nurse Note REVIEW OF SYSTEMS: General: The patient denies fatigue, denies weight loss, denies weight gain, denies feeling hot, and denies feelings of cold. Eyes: The patient denies glaucoma, denies eye injury/surgery, does not wear glasses or contacts. Ear/Nose/Throat: The patient NOTES allergies, denies hayfever, denies ear infections, and denies bloody noses. Cardiovascular: The patient denies chest pain, denies heart disease, denies high blood pressure,denies cardiac stent, denies prior heart attack, denies irregular heart beat, NOTES high cholesterol, denies poor circulation, denies heart failure, other cardiac issues, denies claudication, denies cold feet, denies peripheral arterial stent. Respiratory: The patient denies tuberculosis, denies pneumonia, denies frequent cough, denies pulmonary embolism, denies shortness of breath, and denies coughing up blood. Gastrointestinal: The patient denies difficulty swallowing, denies acid reflux, denies ulcers, denies vomiting, denies jaundice/hepatitis, denies gallbladder problems, denies black or tarry stools, denies hemorrhoids, denies bleeding from rectum, denies diverticulitis, denies constipation, denies diarrhea, denies loss of stool control, and denies hernias. Kidney/Bladder: The patient denies kidney stones, NOTES urine infections, and denies bloody urine. Skin: The patient denies a history of skin cancer, denies bleeding/changing moles, and denies a history of skin rash. Neurologic: The patient denies a history of epilepsy/convulsions, denies headaches, denies head/spinal injuries, and denies stroke/TIA. Psychiatric: The patient denies psychiatric medications, denies depression, and denies voices, denies substance abuse. Endocrine: The patient denies thyroid disorders, denies diabetes, and denies hormonal problems. Hematologic: The patient denies a history of bruising, denies bleeding, and denies anemia, denies blood clots. Infections: The patient denies a history of measles and mumps, denies rheumatic fever, and denies sexually transmitted diseases. Musculoskeletal: The patient denies back pain/injury, denies back problems, denies sciatica, denies knee/foot trouble, denies arthritis, or denies gout. When was patient's last Mammogram screening? 2021 Last Colonoscopy: none Laura Toussaint RN documented in this encounter [facility] 08-11-2021 Note HNO ID: [id number] Author: BROOKE Cantu) Service: ? Author Type: Hydraulic Rock Drill Operator Type: Progress Notes Filed: 08/12/2021 8:23 AM Note Text: Radiology Service Progress Note PATIENT NAME: Clau Gandhi DATE OF SERVICE: August 12, 2021 TIME: 8:23 AM PATIENT IDENTITY VERIFICATION COMPLETED USING TWO (2) IDENTIFIERS: Name and Date of confirmed by patient verbally. FALL SCREENING: Has the patient had 2 falls in the last year or 1 fall with injury or currently using an Ambulatory Assistive Device (Walker, Cane, Wheelchair, Crutches, etc.)? No PATIENT GENDER DATA: Female. status: : No status: NO. PATIENT RELEVANT IMPLANT DATA REVIEWED: Not Applicable RADIOLOGY DEPARTMENT: Ultrasound PERIPHERAL IV DATA: Not applicable SIGNED BY: RT Alondra(R) August 12, 2021 8:23 AM [facility] 08-11-2021 Note HNO ID: [id number] Author: BROOKE Mitchell) Service: ? Author Type: Technologist Type: Progress Notes Filed: 08/11/2021 3:25 PM Note Text: Radiology Service Progress Note PATIENT NAME: Clau Gandhi DATE OF SERVICE: August 11, 2021 TIME: 3:03 PM PATIENT IDENTITY VERIFICATION COMPLETED USING TWO (2) IDENTIFIERS: Name and Date of confirmed by patient verbally. FALL SCREENING: Has the patient had 2 falls in the last year or 1 fall with injury or currently using an Ambulatory Assistive Device (Walker, Cane, Wheelchair, Crutches, etc.)? No PATIENT GENDER DATA: Female. status: : No status: NO. PATIENT RELEVANT IMPLANT DATA REVIEWED: Not Applicable RADIOLOGY DEPARTMENT: Mammography PERIPHERAL IV DATA: Not applicable SIGNED BY: RT Stephen(R) August 11, 2021 3:03 PM [facility] 08-11-2021 History of Presen t illness Narrative Radiology Service Progress Note PATIENT NAME: Clau Gandhi DATE OF SERVICE: August 11, 2021 TIME: 3:03 PM PATIENT IDENTITY VERIFICATION COMPLETED USING TWO (2) IDENTIFIERS: Name and Date of confirmed by patient verbally. FALL SCREENING: Has the patient had 2 falls in the last year or 1 fall with injury or currently using an Ambulatory Assistive Device (Walker, Cane, Wheelchair, Crutches, etc.)? No PATIENT GENDER DATA: Female. status: : No status: NO. PATIENT RELEVANT IMPLANT DATA REVIEWED: Not Applicable RADIOLOGY DEPARTMENT: Mammography PERIPHERAL IV DATA: Not applicable SIGNED BY: RT Stephen(R) August 11, 2021 3:03 PM documented in this encounter [facility] 07-10-2021 Note HNO ID: [id number] Author: Cecille Parks MD Service: ? Author Type: Physician Type: Progress Notes Filed: 07/17/2021 8:00 AM Note Text: VIRTUAL VISIT PROGRESS NOTE This is a virtual visit using [employer] video visit. It required patient-provider interaction for the medical decision making as documented below. Clau Gandhi is a 31 year old female seen to discuss hysterectomy. DUB, pelvic pain, and h/o endometriosis. She reports she had the Paragard IUD in the past and she had difficulty with this. Component Latest Ref Rng AND Units 07/03/2021 hCG Quantitative, Blood <5.0 mIU/mL <0.6 Estradiol 17B pg/mL 115 FSH See comment mIU/mL 2.7 Prolactin 4.5 - 26.8 ng/mL 13.6 TSH 0.270 - 4.200 mIU/L 1.200 RESULT: Uterus size: 9.1 x 6.0 x 4.5 cm ?? ? -Orientation: Anteverted ?? ? -Myometrium: Normal sonographic appearance. ?No focal myometrial abnormality ?? ? -Endometrial echo complex: 15 mm, transvaginally. ?On static images, there is slight heterogeneity of the central endometrial stripe at the level the fundus suggesting possible trace mildly complex fluid. ?On the cine loop stenosis not present and whether this is a true finding or artifact related to probe angulation is uncertain. ?? ? -Cervix: normal Right ovary: 3.3 x 3.1 x 2.3 cm ?Normal sonographic appearance. ? Arterial ?and venous vascular flow documented Left ovary: 2.6 x 2.4 x 2.2 cm ?Normal sonographic appearance. ? Arterial and venous vascular flow documented Pelvis free fluid: None. HISTORY REVIEWED (electronic chart updated): PAST MEDICAL HISTORY Diagnosis Date - Abnormal Pap smear of cervix - H/O LEEP 2009 PAST SURGICAL HISTORY Procedure Laterality Date - CERVIX UTERI CONIZA LP ELCTRO EXCI - PAST SURGICAL HISTORY OF Laproscopy for endometriosis - PT ED OBSTETRICS AND GYNECOLOGY - TUBAL LIGATION HX 2009 FAMILY HISTORY Problem Relation Age of Onset - No Known Problems Mother - Heart Father - Hypertension Father - Hyperlipidemia Father - No Known Problems Brother - No Known Problems Brother - No Known Problems Brother - Hypertension Maternal Grandmother - Diabetes Maternal Grandmother - No Known Problems Maternal Grandfather - No Known Problems Paternal Grandmother - No Known Problems Paternal Grandfather Social History Tobacco Use - Smoking status: Never Smoker - Smokeless tobacco: Never Used Vaping Use - Vaping Use: Never used Substance Use Topics - Alcohol use: Yes Comment: rare - Drug use: No Current Outpatient Medications Medication Sig - Drospirenone-Ethinyl Estradiol (ARIS, Ralf,) 3-0.02 mg per tablet Take 1 tablet by mouth once daily. (Patient not taking: Reported on 07/03/2021 ) No current facility-administered medications for this visit. ALLERGIES No Known Allergies REVIEW OF SYSTEMS: As noted in HPI PHYSICAL EXAMINATION: VIDEO EXAM: (if completed, performed via video enabled technology) No exam performed ASSESSMENT: (Z87.42) History of endometriosis (primary encounter diagnosis) (R10.2) Pelvic pain in female (N93.8) DUB (dysfunctional uterine bleeding) (Z98.890) History of loop electrical excision procedure (LEEP) PLAN: Reviewed pelvic ultrasound results and recommend further evaluation of endometrial cavity. Possible polyp given h/o polyps and fluid within endometrial complex. She declines hysteroscopy at this time. Patient declines medical treatment options at this time for DUB, pelvic pain, and endometriosis. Desires hysterectomy. Referral placed to [facility] for a consultation given h/o endometriosis. There are no Patient Instructions on file for this visit. I spent a total of 20 minutes on the date of the service which included preparing to see the patient, [id number] patient care, completing clinical documentation, obtaining and/or reviewing separately obtained history and counseling and educating the patient/family/caregiver Cecille Parks DO [facility] 07-08-2021 Miscellaneous Notes Filed Order pending. Please file order for bilateral diagnostic mammogram per breast imaging protocol for a 31 yo since patient has never had a mammogram. Thank you. documented in this encounter [facility] 07-03-2021 Note HNO ID: [id number] Author: Echo Parker RDMS Service: ? Author Type: Cleaning Professional Type: Progress Notes Filed: 07/03/2021 3:57 PM Note Text: r Radiology Service Progress Note PATIENT NAME: Clau Gandhi DATE OF SERVICE: July 03, 2021 TIME: 3:57 PM PATIENT IDENTITY VERIFICATION COMPLETED USING TWO (2) IDENTIFIERS: Name and Date of confirmed by patient verbally. FALL SCREENING: Has the patient had 2 falls in the last year or 1 fall with injury or currently using an Ambulatory Assistive Device (Walker, Cane, Wheelchair, Crutches, etc.)? No PATIENT GENDER DATA: Female. status: : No status: N/A PATIENT RELEVANT IMPLANT DATA REVIEWED: Not Applicable RADIOLOGY DEPARTMENT: Ultrasound PERIPHERAL IV DATA: Not applicable SIGNED BY: Echo Parker RDMS RVT July 03, 2021 3:57 PM [facility] 07-03-2021 History of Presen t illness Narrative r Radiology Service Progress Note PATIENT NAME: Clau Gandhi DATE OF SERVICE: July 03, 2021 TIME: 3:57 PM PATIENT IDENTITY VERIFICATION COMPLETED USING TWO (2) IDENTIFIERS: Name and Date of confirmed by patient verbally. FALL SCREENING: Has the patient had 2 falls in the last year or 1 fall with injury or currently using an Ambulatory Assistive Device (Walker, Cane, Wheelchair, Crutches, etc.)? No PATIENT GENDER DATA: Female. status: : No status: N/A PATIENT RELEVANT IMPLANT DATA REVIEWED: Not Applicable RADIOLOGY DEPARTMENT: Ultrasound PERIPHERAL IV DATA: Not applicable SIGNED BY: Echo Parker RDMS RVT July 03, 2021 3:57 PM documented in this encounter [facility] 07-03-2021 Note HNO ID: [id number] Author: Cecille Parks MD Service: ? Author Type: Physician Type: Progress Notes Filed: 07/03/2021 9:52 AM Note Text: Clau is a 31 year old who presents for an annual gynecologic exam without complaints. Menses: cycles every 28 days and 7 days of flow. Heavy flow. LMP 05/14/21. Late for menses this month and has been having irregular spotting. She reports a h/o polyps. Had a positive test at home followed by a negative test 2 hours later Contraception: tubal sterilization. She states she had 1 tube removed due to ectopic with Paragard IUD in place, and the other tube was cauterized HPV vaccine: No Last Pap: 04/09/2016 normal HPV: N/A History of abnormal pap: Yes - LEEP 2009 Last mammogram: never Sexually active: Yes Patient concerns for STD exposure: No. History of endometriosis: Yes OB History T0 L2 SAB0 IAB0 Ectopic1 Multiple0 Live Births0 Security System Analyst History LMP: 05/14/2021, Having periods Age at Menarche: Age at First : Age at Menopause: Security System Analyst History Comments: Sexual Activity: Yes; Male Contraception: Tubal Ligation PAST MEDICAL HISTORY Diagnosis Date - Abnormal Pap smear of cervix - H/O LEEP 2010 PAST SURGICAL HISTORY Procedure Laterality Date - CERVIX UTERI CONIZA LP ELCTRO EXCI - PAST SURGICAL HISTORY OF Laproscopy for endometriosis - PT ED OBSTETRICS AND GYNECOLOGY - TUBAL LIGATION HX 2010 FAMILY HISTORY Problem Relation Age of Onset - No Known Problems Mother - Heart Father - Hypertension Father - Hyperlipidemia Father - No Known Problems Brother - No Known Problems Brother - No Known Problems Brother - Hypertension Maternal Grandmother - Diabetes Maternal Grandmother - No Known Problems Maternal Grandfather - No Known Problems Paternal Grandmother - No Known Problems Paternal Grandfather SOCIAL HISTORY Social History Tobacco Use - Smoking status: Never Smoker - Smokeless tobacco: Never Used Vaping Use - Vaping Use: Never used Substance Use Topics - Alcohol use: Yes Comment: rare - Drug use: No REVIEW OF SYSTEMS Abdomen: No abdominal pain, nausea, vomiting, diarrhea, or constipation. No bloating, early satiety, indigestion, or increased flatulence. Bladder: No dysuria, gross hematuria, urinary frequency, urinary urgency, or incontinence. Breast: No breast lumps, nipple d/c, overlying skin changes, redness or skin retraction. Allergies and current medication updated:Yes EXAM: BP 110/70 Ht 5' 3 (1.60m) Wt 170 lb (77.1kg) LMP 05/14/2021 BMI 30.12 kg/(m2). GENERAL: pleasant, female in no apparent distress HEENT: Normocephalic, atraumatic, mucus membranes moist and no lesions NECK: Supple, full range of motion, no adenopathy and thyroid normal DERMATOLOGY: Normal, without lesions, non-icteric and non-hirsute BREAST: soft, non-tender, symmetric, normal nipple-areolar complex, no lymphadenopathy and no nipple discharge. There is a small, 1-2 cm mobile mass palpated in upper outer quadrant of th left breast at the 1 o'clock position and patient notes she has felt this before and it has been stable in size CHEST: Normal inspiratory effort ABDOMEN: soft, non-tender and no masses PELVIC: external genitalia normal, normal Bartholin's glands, urethra, Thermalito's glands, no vulvar lesions, no cervical lesions, good vaginal support, physiologic discharge present, normal appearing perineal body and perianal region BIMANUAL: uterus normal size, shape and consistency, no adnexal masses and non-tender RECTOVAGINAL: deferred. NEURO: exam grossly non-focal EXTREMITIES: normal ASSESSMENT/PLAN: 1) Health maintenance: Pap done with HPV. Mammogram and breast US ordered for left breast lump palpated on exam today. Nutrition, exercise and routine health maintenance exams reviewed. Irregular bleeding and pelvic pain: Pelvic US ordered and blood work per patient request. H/o endometriosis and uterine polyps. Urine test today. Recommend considering Mirena IUD for menorrhagia, endometriosis, and h/o polyps. Handout given for her to review and she is considering. 2) Contraception: tubal sterilization. Contraceptive options reviewed and information provided. 3) STD screening: Declined STD check. 4) Follow up one year or sooner as needed Cecille Parks DO [facility] 07-03-2021 Miscellaneous Notes Addended by: RONY SWIFT on: 07/03/2021 10:04 AM Modules accepted: Orders documented in this encounter [facility] 07-03-2021 History of Presen t illness Narrative Clau is a 31 year old who presents for an annual gynecologic exam without complaints. Menses: cycles every 28 days and 7 days of flow. Heavy flow. LMP 05/14/21. Late for menses this month and has been having irregular spotting. She reports a h/o polyps. Had a positive test at home followed by a negative test 2 hours later Contraception: tubal sterilization. She states she had 1 tube removed due to ectopic with Paragard IUD in place, and the other tube was cauterized HPV vaccine: No Last Pap: 04/09/2016 normal HPV: N/A History of abnormal pap: Yes - LEEP 2009 Last mammogram: never Sexually active: Yes Patient concerns for STD exposure: No. History of endometriosis: Yes OB History T0 L2 SAB0 IAB0 Ectopic1 Multiple0 Live Births0 Security System Analyst History LMP: 05/14/2021, Having periods Age at Menarche: Age at First : Age at Menopause: Security System Analyst History Comments: Sexual Activity: Yes; Male Contraception: Tubal Ligation PAST MEDICAL HISTORY Diagnosis Date Abnormal Pap smear of cervix H/O LEEP 2010 PAST SURGICAL HISTORY Procedure Laterality Date CERVIX UTERI CONIZA LP ELCTRO EXCI PAST SURGICAL HISTORY OF Laproscopy for endometriosis PT ED OBSTETRICS & GYNECOLOGY TUBAL LIGATION HX 2010 FAMILY HISTORY Problem Relation Age of Onset No Known Problems Mother Heart Father Hypertension Father Hyperlipidemia Father No Known Problems Brother No Known Problems Brother No Known Problems Brother Hypertension Maternal Grandmother Diabetes Maternal Grandmother No Known Problems Maternal Grandfather No Known Problems Paternal Grandmother No Known Problems Paternal Grandfather SOCIAL HISTORY Social History Tobacco Use Smoking status: Never Smoker Smokeless tobacco: Never Used Vaping Use Vaping Use: Never used Substance Use Topics Alcohol use: Yes Comment: rare Drug use: No REVIEW OF SYSTEMS Abdomen: No abdominal pain, nausea, vomiting, diarrhea, or constipation. No bloating, early satiety, indigestion, or increased flatulence. Bladder: No dysuria, gross hematuria, urinary frequency, urinary urgency, or incontinence. Breast: No breast lumps, nipple d/c, overlying skin changes, redness or skin retraction. Allergies and current medication updated:Yes EXAM: BP 110/70 Ht 5' 3 (1.60m) Wt 170 lb (77.1kg) LMP 05/14/2021 BMI 30.12 kg/(m^2). GENERAL: pleasant, female in no apparent distress HEENT: Normocephalic, atraumatic, mucus membranes moist and no lesions NECK: Supple, full range of motion, no adenopathy and thyroid normal DERMATOLOGY: Normal, without lesions, non-icteric and non-hirsute BREAST: soft, non-tender, symmetric, normal nipple-areolar complex, no lymphadenopathy and no nipple discharge. There is a small, 1-2 cm mobile mass palpated in upper outer quadrant of th left breast at the 1 o'clock position and patient notes she has felt this before and it has been stable in size CHEST: Normal inspiratory effort ABDOMEN: soft, non-tender and no masses PELVIC: external genitalia normal, normal Bartholin's glands, urethra, Thermalito's glands, no vulvar lesions, no cervical lesions, good vaginal support, physiologic discharge present, normal appearing perineal body and perianal region BIMANUAL: uterus normal size, shape and consistency, no adnexal masses and non-tender RECTOVAGINAL: deferred. NEURO: exam grossly non-focal EXTREMITIES: normal ASSESSMENT/PLAN: 1) Health maintenance: Pap done with HPV. Mammogram and breast US ordered for left breast lump palpated on exam today. Nutrition, exercise and routine health maintenance exams reviewed. Irregular bleeding and pelvic pain: Pelvic US ordered and blood work per patient request. H/o endometriosis and uterine polyps. Urine test today. Recommend considering Mirena IUD for menorrhagia, endometriosis, and h/o polyps. Handout given for her to review and she is considering. 2) Contraception: tubal sterilization. Contraceptive options reviewed and information provided. 3) STD screening: Declined STD check. 4) Follow up one year or sooner as needed Cecille Parks DO documented in this encounter [facility] Diagnosis Irregular bleeding Irregular menstrual cycle documented in this encounter [facility] note* Diagnosis Mass of upper outer quadrant of left breast- Primary documented in this encounter [facility] note* Diagnosis Mass of upper outer quadrant of left breast [facility]* Diagnosis Mass of upper outer quadrant of left breast documented in this encounter [facility] note* Diagnosis Mass of upper outer quadrant of left breast- Primary Abnormal ultrasound of breast Other (abnormal) findings on radiological examination of breast documented in this encounter [facility] note* Diagnosis Abnormal ultrasound of breast- Primary Other (abnormal) findings on radiological examination of breast documented in this encounter [facility] note* Diagnosis Fibroadenoma of breast, left- Primary documented in this encounter [facility] note* Diagnosis DUB (dysfunctional uterine bleeding)- Primary Other disorder of menstruation and other abnormal bleeding from female genital tract Menorrhagia with irregular cycle Excessive or frequent menstruation Fluid in endometrial cavity Other specified disorders of uterus, not elsewhere classified Chronic pelvic pain in female Unspecified symptom associated with female genital organs History of endometriosis Personal history of other genital system and obstetric disorders documented in this encounter [facility] note* Diagnosis Encounter for initial prescription of contraceptive pills General counseling for prescription of oral contraceptives Endometriosis Endometriosis, site unspecified Chronic pelvic pain in female Unspecified symptom associated with female genital organs DUB (dysfunctional uterine bleeding) Other disorder of menstruation and other abnormal bleeding from female genital tract documented in this encounter [facility] note* Diagnosis Encounter for initial prescription of contraceptive pills- Primary General counseling for prescription of oral contraceptives Endometriosis Endometriosis, site unspecified Chronic pelvic pain in female Unspecified symptom associated with female genital organs DUB (dysfunctional uterine bleeding) Other disorder of menstruation and other abnormal bleeding from female genital tract [facility] Diagnostic Procedure Only (Routine) - Pending Review Specialty Diagnoses / Procedures Referred By Demetrius t Referred To Contact [facility] Diagnoses Mass of upper outer quadrant of left breast Procedures JOHN DIAGNOSTIC LT DIAGNOSTIC MAMMOGRAPHY COMPUTER-AIDED DETCJ UNI Cecille Parks MD [address] [place] [address] [facility] [address] [place] [address] Referral ID Status Reason Start Date Expiration Date Visits Requested Visits Authorized [id number] Pending Review Auto-Generat ed Referral 07/03/2021 08/02/2022 1 1 * Diagnostic Procedure Only (Routine) - Pending Review Specialty Diagnoses / Procedures Referred By Contac t Referred To Contact [facility] Diagnoses Mass of upper outer quadrant of left breast Procedures US BREAST LTD LT US BREAST UNI REAL TIME WITH IMAGE LIMITED Cecille Parks MD [address] [place] [address] [facility] [address] [place] [address] Referral ID Status Reason Start Date Expiration Date Visits Requested Visits Authorized [id number] Pending Review Auto-Generat ed Referral 07/03/2021 08/02/2022 1 1 * Diagnostic Procedure Only (Routine) - Pending Review Specialty Diagnoses / Procedures Referred By Demetrius vásquez Referred To Contact [facility] Diagnoses Irregular bleeding Pelvic pain in female Endometriosis Procedures PELVIC US WHI US PELVIC NONOBSTETRIC REAL-TIME IMAGE COMPLETE Cecille Parks MD [address] [place] [address] [facility] [address] [place] [address] Referral ID Status Reason Start Date Expiration Date Visits Requested Visits Authorized [id number] Pending Review Auto-Generat ed Referral 07/03/2021 07/03/2022 1 1 * Diagnostic Procedure Only (Routine) - Authorized Specialty Diagnoses / Procedures Referred By Contac t Referred To Contact [facility] Diagnoses Irregular bleeding Procedures US FEMALE PELVIS TRANSVAG US TRANSVAGINAL Cecille Parks MD [address] [place] [address] [facility] Referral ID Status Reason Start Date Expiration Date Visits Requested Visits Authorized [id number] Authorized Auto-Generat ed Referral 07/03/2021 03/06/2022 99 99 [facility] for referral (narrative)* Diagnostic Procedure Only (Routine) - Authorized Specialty Diagnoses / Procedures Referred By Demetrius t Referred To Contact [facility] Diagnoses Irregular bleeding Procedures US FEMALE PELVIS TRANSVAG US TRANSVAGINAL Cecille Parks MD [address] [place] [address] [facility] Referral ID Status Reason Start Date Expiration Date Visits Requested Visits Authorized [id number] Authorized Auto-Generat ed Referral 07/03/2021 03/06/2022 99 99 [facility] for referral (narrative)* Diagnostic Procedure Only (Routine) - Pending Review Specialty Diagnoses / Procedures Referred By Demetrius vásquez Referred To Contact [facility] Diagnoses Mass of upper outer quadrant of left breast Procedures JOHN DIAGNOSTIC BILAT DIAGNOSTIC MAMMOGRAPHY COMPUTER-AIDED DETCJ BI Cecille Parks MD [address] [place] [address] [facility] [address] [place] [address] Referral ID Status Reason Start Date Expiration Date Visits Requested Visits Authorized [id number] Pending Review Auto-Generat ed Referral 07/08/2021 08/07/2022 1 1 T [facility] for referral (narrative)* Diagnostic Procedure Only (Routine) - Closed Specialty Diagnoses / Procedures Referred By Demetrius vásquez Referred To Contact [facility] Diagnoses Mass of upper outer quadrant of left breast Procedures US BREAST LTD LT US BREAST UNI REAL TIME WITH IMAGE LIMITED Cecille Parks MD [address] [place] [address] [facility] [address] [place] [address] Referral ID Status Reason Start Date Expiration Date V isits Requested Visits Authorized [id number] Closed Auto-Generate d Referral 08/11/2021 03/06/2022 1 1 [facility] for referral (narrative)* Diagnostic Procedure Only (Routine) - Pending Review Specialty Diagnoses / Procedures Referred By Contac t Referred To Contact [facility] Diagnoses Abnormal ultrasound of breast Procedures JOHN DIAGNOSTIC LT DIAGNOSTIC MAMMOGRAPHY COMPUTER-AIDED DETCJ UNI Mariluz Baker MD [address] [place] [address] [facility] [address] [place] [address] Referral ID Status Reason Start Date Expiration Date Visits Requested Visits Authorized [id number] Pending Review Auto-Generat ed Referral 08/31/2021 09/30/2022 1 1 [facility] for visit Narrative* Diagnostic Procedure Only (Routine) - Closed Specialty Diagnoses / Procedures [facility] Diagnoses Mass of upper outer quadrant of left breast Procedures US BREAST LTD LT US BREAST UNI REAL TIME WITH IMAGE LIMITED Cecille Parks MD [address] [place] [address] [facility] [address] [place] [address] Referral ID Status Reason Start Date Expiration Date V isits Requested Visits Authorized [id number] Closed Auto-Generate d Referral 08/11/2021 03/06/2022 1 1 [facility] for visit Narrative* Diagnostic Procedure Only (Routine) - Closed Specialty Diagnoses / Procedures Referred By Contac t Referred To Contact [facility] Diagnoses Mass of upper outer quadrant of left breast Procedures JOHN DIAGNOSTIC BILAT DIAGNOSTIC MAMMOGRAPHY COMPUTER-AIDED DETCJ BI Cecille Parks MD [address] [place] [address] [facility] [address] [place] [address] Referral ID Status Reason Start Date Expiration Date V isits Requested Visits Authorized [id number] Closed Auto-Generate d Referral 07/08/2021 08/07/2022 1 1 [facility] Procedure (Routine) - Closed Specialty Diagnoses / Procedures Referred By Demetrius vásquez Referred To Contact GENERAL SURGERY Diagnoses Mass of upper outer quadrant of left breast US guided left needle core breast biopsy Procedures BX BREAST W/DEVICE 1ST LESION ULTRASOUND GUID US guided left needle core breast biopsy Mariluz Baker MD [address] [place] [address] [facility] [address] [address] [place] [address] Referral ID Status Reason Start Date Expiration Date V isits Requested Visits Authorized [id number] Closed OON/Self Pay Override 08/28/2021 03/06/2022 1 1 [facility] Summary Purpose Family History No Family History Records FoundNo Family History Records FoundNo Family History Records FoundNo Family History Records FoundNo Family History Records Found Advance Directives No Advanced Directives Records FoundNo Advanced Directives Records FoundNo Advanced Directives Records FoundNo Advanced Directives Records FoundNo Advanced Directives Records Found Additional Source Comments INFORMATION SOURCE (unrecogn ized section and content) DATE CREATED AUTHOR AUTHOR'S ORGANIZ ATION 01/28/2022 [facility] DATE CREATED AUTHOR AUTHOR'S ORGANIZ ATION 01/20/2023 [facility] DATE CREATED AUTHOR AUTHOR'S ORGANIZ ATION 01/21/2023 [facility] DATE CREATED AUTHOR AUTHOR'S ORGANIZ ATION 02/16/2023 [facility] Source Comments (unrecognize d section and content) In the event this informatio n is protected by the Federal Confidentiality of Alcohol and Drug Abuse Patient Records regulations: The Federal rules restrict any use of the information to criminally investigate or prosecute any alcohol or drug abuse patient.[facility] the event this information is protected by the Federal Confidentiality of Alcohol and Drug Abuse Patient Records regulations: The Federal rules restrict any use of the information to criminally investigate or prosecute any alcohol or drug abuse patient.[facility] the event this information is protected by the Federal Confidentiality of Alcohol and Drug Abuse Patient Records regulations: The Federal rules restrict any use of the information to criminally investigate or prosecute any alcohol or drug abuse patient.[facility] the event this information is protected by the Federal Confidentiality of Alcohol and Drug Abuse Patient Records regulations: The Federal rules restrict any use of the information to criminally investigate or prosecute any alcohol or drug abuse patient.[facility] the event this information is protected by the Federal Confidentiality of Alcohol and Drug Abuse Patient Records regulations: The Federal rules restrict any use of the information to criminally investigate or prosecute any alcohol or drug abuse patient.[facility] the event this information is protected by the Federal Confidentiality of Alcohol and Drug Abuse Patient Records regulations: The Federal rules restrict any use of the information to criminally investigate or prosecute any alcohol or drug abuse patient.[facility] the event this information is protected by the Federal Confidentiality of Alcohol and Drug Abuse Patient Records regulations: The Federal rules restrict any use of the information to criminally investigate or prosecute any alcohol or drug abuse patient.[facility] the event this information is protected by the Federal Confidentiality of Alcohol and Drug Abuse Patient Records regulations: The Federal rules restrict any use of the information to criminally investigate or prosecute any alcohol or drug abuse patient.[facility] the event this information is protected by the Federal Confidentiality of Alcohol and Drug Abuse Patient Records regulations: The Federal rules restrict any use of the information to criminally investigate or prosecute any alcohol or drug abuse patient.[facility] the event this information is protected by the Federal Confidentiality of Alcohol and Drug Abuse Patient Records regulations: The Federal rules restrict any use of the information to criminally investigate or prosecute any alcohol or drug abuse patient.[facility] the event this information is protected by the Federal Confidentiality of Alcohol and Drug Abuse Patient Records regulations: The Federal rules restrict any use of the information to criminally investigate or prosecute any alcohol or drug abuse patient.[facility] the event this information is protected by the Federal Confidentiality of Alcohol and Drug Abuse Patient Records regulations: The Federal rules restrict any use of the information to criminally investigate or prosecute any alcohol or drug abuse patient.[facility] Reason for Visit (unrecogniz ed section and content) Specialty Diagnoses / Procedures Referred By Contac t Referred To Contact US IMAGING Diagnoses Irregular bleeding Procedures US FEMALE PELVIS TRANSVAG US TRANSVAGINAL Cecille Parks MD [address] [place] [address] Us Imaging Referral ID Status Reason Start Date Expiration Date Visits Requested Visits Authorized [id number] Authorized Auto-Generat ed Referral 07/03/2021 03/06/2022 99 99 Reason Comments Well Woman Reason Comments Orders Reason Comments Consult left breast nodule Specialty Diagnoses / Procedures Referred By Contac t Referred To Contact General Surgery / GENERAL SURGERY Diagnoses Breast nodule Surgery Consult for Left Breast Solid Nodule Procedures OFFICE/OUTPATIENT ESTABLISHED MOD [facility] 30-39 MIN NEW DDI BREAST Cecille Parks MD [address] [place] [address] Mariluz Baker MD [address] [place] [address] Referral ID Status Reason Start Date Expiration Date Visits Re quested Visits Authorized [id number] Closed 08/14/2021 03/06/2022 1 1 Reason Comments Follow Up breast bx left Specialty Diagnoses / Procedures Referred By Demetrius t Referred To Contact General Surgery / GENERAL SURGERY Diagnoses Follow-up examination Follow up Mammotom Biopsy, Left Breast Procedures OFFICE/OUTPATIENT ESTABLISHED MOD [facility] 30-39 MIN EST DDI BREAST Mariluz Baker MD [address] [facility] [facility] [place] [address] Mariluz Baker MD [address] [place] [address] Referral ID Status Reason Start Date Expiration Date Visits Re quested Visits Authorized [id number] Closed 09/04/2021 03/06/2022 1 1 Reason Comments Pre-Op Visit Specialty Diagnoses / Procedures Referred By Contac t Referred To Contact REGISTERED RESPIRATORY TECHNICIAN Diagnoses surgery 09/24 @[facility] Procedures OFFICE/OUTPATIENT ESTABLISHED MOD [facility] 30-39 MIN PRE OP Cecille Parks MD [address] [place] [address] Cecille Parks MD [address] [place] [address] Referral ID Status Reason Start Date Expiration Date Visits Re quested Visits Authorized [id number] Closed 09/21/2021 03/06/2022 1 1 Reason Comments Medication Question Reason Comments Post-Op Visit Specialty Diagnoses / Procedures Referred By Demetrius vásquez Referred To Contact REGISTERED RESPIRATORY TECHNICIAN Diagnoses Follow-up examination 2 Week F/U Post Op Procedures OFFICE/OUTPATIENT ESTABLISHED MOD [facility] 30-39 MIN POST OP Cecille Parks MD [address] [place] [address] Cecille Parks MD [address] [place] [address] Referral ID Status Reason Start Date Expiration Date Visits Re quested Visits Authorized [id number] Closed 10/12/2021 03/06/2022 1 1 Reason Comments Appointment Appointment-Referral FOR RECORDS PERTAINING TO PATIENTS WHO ARE OR HAVE BEEN ENROLLED IN A CHEMICAL DEPENDENCY/SUBSTANCEABUSE PROGRAM, SOME INFORMATION MAY BE OMITTED. This clinical summary was aggregated from multiple sources. Caution should be exercised in using it in the provision of clinical care. This summary normalizes information from multiple sources, and as a consequence, information in this document may materially change the coding, format and clinical context of patient data. In addition, data may be omitted in some cases. CLINICAL DECISIONS SHOULD BE BASED ON THE PRIMARY CLINICAL RECORDS. [facility] [address] [facility]. provides no warranty or guarantee of the accuracy or completeness of information in this document.
--- NOTE | 2023-05-05 15:30 | STRESSREP ---
Stress Test Report Date: 05/04/2023 Procedure: Exercise tolerance test/imaging study Indications: Chest pain Consent: Per the patient Procedure: The patient exercised on a Serge protocol for 8 minutes and 5 seconds achieving a peak heart rate of 160 bpm (86% predicted maximal heart rate) with a peak blood pressure 142/70 mmHg and a peak MET capacity of 10.1 METs. The baseline ECG demonstrated sinus rhythm. The peak exercise ECG demonstrated ST changes that are borderline positive for ischemia. There were no cardiac dysrhythmias pretest, during exercise, or recovery. The functional capacity was considered average. There was no complaint of chest discomfort during exercise or recovery. The examination was discontinued secondary to target heart rate being achieved. The patient was injected with 12.0 mCi of technetium 99m Cardiolite and subsequently rest SPECT Cardiolite nuclear imaging was obtained in the horizontal long, vertical long, and short axis views. Post-exercise, the patient was injected with 34.0 mCi of technetium 99m Cardiolite and subsequently stress SPECT Cardiolite nuclear imaging was obtained in the horizontal long, vertical long, and short axis views. A gated Cardiolite study at peak stress was obtained. Rest and stress SPECT Cardiolite nuclear imaging status post realignment, normalization, and attenuation correction, demonstrates the appearance of relative uniform tracer uptake and myocardial perfusion appearing within normal limits. There is end systolic thickening and brightening. The gated Cardiolite study demonstrates myocardial thickening and inward wall motion. The reported LVEF is 68%. Impression: 1. Technically adequate (percent predicted maximal heart rate greater than 85%) exercise tolerance test 2. Peak exercise ECG with borderline ST-T wave changes for ischemia 3. There were no cardiac dysrhythmias pretest, during exercise, or recovery 4. Rest and stress SPECT Cardiolite nuclear imaging demonstrate relative uniform tracer uptake and myocardial perfusion appearing within normal limits. 5. The gated Cardiolite study reports an LVEF of 68%. This note was generated with [employer] software. It may contain incorrect words, spelling, and punctuation that were not noted in checking the note before signing.
== END | disposition home or self-care (01) ==
LOC: CVS 07:29
PROVIDERS: PCP Nurse Practitioner Family; Referring Provider Internal Medicine Cardiovascular Disease; Visit Provider Internal Medicine Cardiovascular Disease
DX: Z01.810 Encounter for preprocedural cardiovascular examination (principal); I10 Essential (primary) hypertension; K44.9 Diaphragmatic hernia without obstruction or gangrene; I70.90 Unspecified atherosclerosis; R00.2 Palpitations
CPT/HCPCS: 78452; 93017; A9500; A4216

== ENCOUNTER → 2023-07-18 | Outpatient (CLI) | payer OTHER, SELFPAY ==
--- NOTE | 2023-07-18 17:47 | CT_ITS ---
INDICATION: eval thoracic aorta EXAMINATION: - CTA Chest WO/W Contrast Injection A radiation dose optimization technique was used for this scan. RADIATION DOSAGE (If Supplied By Facility): CTDIvol/DLP = ( 11.63 ) / ( 435.45 ) mGy/mGycm COMPARISON: None. FINDINGS: Contrast enhanced serial CTA axial images through the chest with coronal and sagittal reformatted series. IV Contrast dosage and agent: 100 mL Isovue-370 IV. MEDIASTINUM: No acute thoracic aortic abnormality. No pulmonary artery filling defects. Somewhat patulous fluid containing esophagus. LUNG PARENCHYMA: No acute pulmonary parenchymal abnormality. PLEURA: No pleural effusion. No pneumothorax. BONES: Osseous structures are unremarkable for age. UPPER ABDOMEN: Small hiatal hernia. CT/CTA Chest W/WO Contrast IMPRESSION: Somewhat patulous fluid containing esophagus. No pulmonary embolus or acute aortic abnormality. No acute abnormality of the chest identified. Electronically Signed: Tommy Sanchez MD at 4:22 EDT ,
== END | disposition home or self-care (01) ==
LOC: CT 17:45
PROVIDERS: PCP Nurse Practitioner Family; Referring Provider Internal Medicine Cardiovascular Disease; Visit Provider Internal Medicine Cardiovascular Disease
DX: I77.810 Thoracic aortic ectasia (principal); I70.90 Unspecified atherosclerosis; K21.00 Gastro-esophageal reflux disease with esophagitis, without bleeding; K44.9 Diaphragmatic hernia without obstruction or gangrene
CPT/HCPCS: 71275; Q9967

== ENCOUNTER → 2023-10-04 | Outpatient (CLI) | payer OTHER, SELFPAY ==
--- NOTE | 2023-10-04 07:54 | RAD_ITS ---
STUDY: X-RAY - ESOPHAGUS (BARIUM SWALLOW) WITH FLUOROSCOPY REASON FOR EXAM: Female, 33 years old. GERD TECHNIQUE: 81 fluoroscopic view(s) of the esophagus were obtained following swallowing of barium. FLUOROSCOPY TIME (if supplied): (43 seconds) minutes/seconds. 4.1 mGy. COMPARISON: None. FINDINGS: There is no demonstrated esophageal foreign body. There is no demonstrated stricture or mucosal abnormality. Normal gastroesophageal junction, without a demonstrated hiatal hernia. The patient ingested a 12 mm tablet of barium without any difficulty. Normal visualized aortic arch and descending thoracic aorta. Normal visualized pulmonary parenchyma. Normal visualized osseous structures of the thorax. RAD/Esophagus Single Contrast IMPRESSION: Normal plain film x-ray examination (barium swallow) of the esophagus. Electronically Signed: Gurvinder Brady MD at 8:32 EDT ,
== END | disposition home or self-care (01) ==
PROVIDERS: PCP Nurse Practitioner Family; Referring Provider Surgery; Visit Provider Surgery
DX: K21.9 Gastro-esophageal reflux disease without esophagitis (principal)
CPT/HCPCS: 74220

== ENCOUNTER 2023-12-21 15:09 | Observation (INO) | payer OTHER, SELFPAY ==
[2023-12-13 10:46] LABS: Hematocrit 28.7 % (37-47); Hemoglobin 8.2 g/dL (12.0-15.0); Mean Corp Hgb Conc 28.6 g/dL (32-36); Mean Corpuscular Hgb 20.7 pg (27.0-32.0); Mean Corpuscular Volume 72.3 fL (81-99); Mean Platelet Vol. 9.5 fl (6.2-12.0); Platelet Count 426 K/mm3 (150-450); RBC Distribution Width CV 16.9 % (11.6-14.6); RBC Distribution Width SD 44.3 fl (35.1-43.9); Red Blood Count 3.97 M/mm3 (4.2-5.4); White Blood Count 5.6 K/mm3 (4.4-11.0)
[2023-12-13 11:05] LABS: Anion Gap 6 (5-15); BUN 10 mg/dL (7-18); BUN/Creat Ratio 14.9 RATIO (10-20); Calcium,Total 9.2 mg/dL (8.5-10.1); Chloride 106 mmol/L (98-107); Creatinine, Serum 0.67 mg/dL (0.55-1.02); EST Glomerular Filtration Rate 106 mL/min (>60); Est Glom Filt Rate - Afr Amer 128 mL/min (>60); Glucose 101 mg/dL (74-106); Potassium 3.3 mmol/L (3.5-5.1); Sodium Level 141 mmol/L (136-145)
[2023-12-21] VITALS (13 sets, daily range): BP systolic 116–146; BP diastolic 70–88; PULSE 84–104; RESP 16–18; TEMP 36.2–36.9; O2SAT 91–100; BMI 31.0
[2023-12-21] MEDS: Lactated Ringers 1,000 ML 15 ML IV (09:45)
[2023-12-21 10:49] LABS: Absolute Lymphocyte Count 1.74 X10^3/uL (0.83-4.51); Absolute Neutrophil Count 3.4 X10^3/uL (2.0-7.7); Basophil# 0.04 X10^3/uL; Basophil% 0.7 % (0-1); Eosinophil# 0.12 X10^3/uL; Eosinophils% 2.1 % (0-5); Hematocrit 27.4 % (37-47); Hemoglobin 8.2 g/dL (12.0-15.0); Lymphocyte # 1.74 X10^3/ul (0.83-4.51); Lymphocyte % 30.4 % (19-41); Mean Corp Hgb Conc 29.9 g/dL (32-36); Mean Corpuscular Hgb 20.9 pg (27.0-32.0); Mean Corpuscular Volume 69.7 fL (81-99); Mean Platelet Vol. 9.4 fl (6.2-12.0); Monocyte# 0.45 X10^3/uL; Monocyte% 7.9 % (0-10); NRBC Flagged by Analyzer 0 % (0-5); Neutrophil # 3.36 X10^3/uL (2.7-7.7); Neutrophil % 58.6 % (47-70); Platelet Count 398 K/mm3 (150-450); RBC Distribution Width CV 16.5 % (11.6-14.6); RBC Distribution Width SD 41.3 fl (35.1-43.9); Red Blood Count 3.93 M/mm3 (4.2-5.4); White Blood Count 5.7 K/mm3 (4.4-11.0)
[2023-12-21 11:01] LABS: Anion Gap 6 (5-15); BUN 12 mg/dL (7-18); BUN/Creat Ratio 18.4 RATIO (10-20); Chloride 109 mmol/L (98-107); Creatinine, Serum 0.65 mg/dL (0.55-1.02); EST Glomerular Filtration Rate 109 mL/min (>60); Est Glom Filt Rate - Afr Amer 132 mL/min (>60); Estimated Creatinine Clearance 116.06 ml/min; Glucose 100 mg/dL (74-106); Potassium 3.5 mmol/L (3.5-5.1); Sodium Level 141 mmol/L (136-145)
--- NOTE | 2023-12-21 11:03 | PRE.ANES_ITS ---
ASA Classification* ASA Classification ASA Classification: 3 Assessment & Plan Anesthesia* Anesthesia Assessment Anesthesia Assessment: Discussed sedation and/or anesthesia options, risks, benefits, and alternatives with patient/parents/legal guardian/POA. Questions invited. The patient/parents/legal guardian/POA seems to understand and agrees to proceed with anesthesia plan. Reviewed the physical assessment, medical history, allergy history and patient home medications list prior to surgery/procedure/anesthetic and documented any changes. Performed airway and anesthesia risk assessments. Anesthesia Type Anesthesia Type: General History Source History Obtained from:: Patient and Chart Anesthesia Focused Assessment* Temperature: 97.6 F Pulse Rate: 84 Blood Pressure: 116/79 Respiratory Rate: 16 Pulse Ox: 100 Oxygen Delivery Method: Room Air Airway Assessment Mouth opens: >3 cm Mallampati Score: I Teeth Condition: Intact Neck Range of motion (ROM): Full ROM Focused Labs Anesthesia Preop lab: CBC WBC 5.7 K/mm3 (4.4-11.0) 12/21/23 10:44 RBC 3.93 M/mm3 (4.2-5.4) L 12/21/23 10:44 Hgb 8.2 g/dL (12.0-15.0) L 12/21/23 10:44 Hct 27.4 % (37-47) L 12/21/23 10:44 Plt Count 398 K/mm3 (150-450) 12/21/23 10:44 CHEMISTRY Potassium 3.5 mmol/L (3.5-5.1) 12/21/23 10:44 Sodium 141 mmol/L (136-145) 12/21/23 10:44 BUN 12 mg/dL (7-18) 12/21/23 10:44 Creatinine 0.65 mg/dL (0.55-1.02) 12/21/23 10:44 Glucose 100 mg/dL (74-106) 12/21/23 10:44 COAG Urine Test Negative Negative 03/25/22 18:00 Pre-Assessment Diagnosis/Proposed Procedure Planned Operative Procedure(s): LAP HIATAL HERNIA WITH PARTIAL FUNDO Anesthesia History 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 When Was Last Pacemaker Check QUESTION #4 FULL TEXT: You/Your Family Experience fever (hyperthermia) with Anesthesia Last Oral Intake Last Oral intake: Last Oral Intake NPO since 00:00 12/21/23 10:04 Meds taken in AM with sips of Yes 12/21/23 10:04 water? Meds patient instructed to pantoprazole 12/21/23 10:04 take am of surgery PONV PONV - data warehouse developer: PONV - data warehouse developer Female Yes 12/07/23 14:26 HX of Motion Sickness No 12/07/23 14:26 HX of N/V After Surgery No 12/07/23 14:26 Non-Smoker Yes 12/07/23 14:26 Duration of Surgery greater Yes 12/07/23 14:26 than 60 minutes Number of Risk Factors 3 12/07/23 14:26 PONV Score Moderate Risk 12/07/23 14:26 Height & Weight Height & Weight: Anesthesia: Height & Weight Height 5 ft 2 in 12/21/23 10:04 Weight: 77 kg 12/21/23 10:04 Body Mass Index (BMI) 31.0 12/21/23 10:04 Respiratory Assessment Respiratory Assessment - data warehouse developer: Respiratory Tract Infection Hx - data warehouse developer Hx Respiratory Tract Infection No 12/07/23 14:26 STOP Sleep Apnea STOP Sleep Apnea - data warehouse developer: STOP Sleep Apnea - data warehouse developer Hx Hypertension Yes: CONTROLLED WITH MEDS 12/07/23 14:26 Hx Sleep Apnea No 12/07/23 14:26 CPAP BIPAP Do you snore loudly (louder Yes 12/07/23 14:26 than talking or can be heard Do you often feel tired/ Yes 12/07/23 14:26 fatigued/ sleepy during daytime? Has anyone observed you stop No 12/07/23 14:26 breathing during sleep? STOP Results Positive 12/07/23 14:26 QUESTION #5 FULL TEXT : Do you snore loudly (louder than talking or can be heard through closed doors)? Tobacco Use History Tobacco Use History - data warehouse developer: Tobacco Use History - data warehouse developer Tobacco Use Smoking Status Never smoker 12/07/23 14:26 Hx Tobacco Use No 12/07/23 14:26 Years Smoking Packs Smoked per Day Smoking Cessation Date was within the last 15 years Hx Smoking Cessation Date Hx Smoking Cessation Counseling Hematologic Medial History Hematologic Hx - data warehouse developer: Hematologic Medical Hx - lens silverer Hx of Blood Transfusion No 12/07/23 14:26 Hx of Transfusion in last 3 No 12/07/23 14:26 Months Date of Last Transfusion (if within last 3 months) Ever experience any problems No 12/07/23 14:26 with transfusion(s)? Specify any problems Hx of Preganancy in last 3 No 12/07/23 14:26 Months Nurse Filling Out Transfusion DSCHRIBER 12/07/23 14:26 & Questions: Date: 12/07/23 12/07/23 14:26 Time: 14:27 12/07/23 14:26 Patient unable to answer at this time (ie. confused, unrespo /Reproduction History /Reproductive History - data warehouse developer: /Reproductive Hx- data warehouse developer Hx Now Gestational Age (in weeks): EDC: Hx Hx Para Hx Section SAB No 11/24/22 15:52 Active Medications Active Medications: Current Medications Generic Name Dose Route Start Last Admin Trade Name Freq PRN Reason Stop Dose Admin Lactated Ringer's 1,000 mls @ 15 mls/hr 12/21/23 09:45 12/21/23 09:45 IV 12/26/23 23:04 15 mls/hr .Q48H [facility] Administration Protocol PFSH Medical History (Updated 12/07/23 @ 14:35 by Adelina Reyna) Cancer History of ulceration History of hiatal hernia History of diverticulitis Shortness of breath on exertion History of Holter monitoring History of stress test Cardiology follow-up encounter Alas esophagus Family history of sudden cardiac Statin intolerance Encounter for monitoring diuretic therapy Encounter for pre-employment health screening examination Hypertension Hiatal hernia Reflux esophagitis Atherosclerotic vascular disease Obesity Arthralgia Atherosclerotic cardiovascular disease High cholesterol History of echocardiogram Endometriosis determined by laparoscopy Chronic pelvic pain in female Loose stools Enteritis Dyslipidemia Anxiety Palpitations GERD (gastroesophageal reflux disease) Headache DUB (dysfunctional uterine bleeding) Restless legs Gastric reflux Non-smoker Hx of LEEP (loop electrosurgical excision procedure) of cervix complicating Home Medications ?Medication ?Instructions ?Recorded ?Last Taken ?Type losartan 25 mg tablet 25 mg PO DAILY #30 tabs 04/06/23 12/20/23 Rx hydrochlorothiazide 25 mg tablet 25 mg PO DAILY #30 tabs 04/15/23 12/20/23 Rx aspirin 81 mg tablet,delayed 81 mg PO DAILY 06/28/23 12/20/23 History release buspirone 7.5 mg tablet 7.5 mg PO BID 06/28/23 12/20/23 History evolocumab 140 mg/mL subcutaneous 140 mg subcut Q2W #2 mL 09/07/23 12/16/23 Rx syringe (Repatha Syringe) pantoprazole 40 mg tablet,delayed 40 mg PO BID 30 days #60 tabs 10/05/23 12/21/23 Rx release Allergy/AdvReac Type Severity Reaction Status Date / Time latex Allergy Intermediate Rash Verified 12/21/23 10:02 ezetimibe (From Zetia) AdvReac Severe tachycardia Verified 12/21/23 10:02 Family History Grandmother Diabetes Kidney disease Hypertension Brother Diabetes HLD (hyperlipidemia) Father Heart disease Hypertension Afib HLD (hyperlipidemia) Grandfather Heart disease Hypertension Mother Heart disease Cardiomyopathy Grandfather Heart disease Myocardial infarction HLD (hyperlipidemia) Other Hypertrophic cardiomyopathy Surgical History (Updated 12/07/23 @ 14:35 by Adelina Reyna) History of esophagogastroduodenoscopy (EGD) History of breast biopsy History of cervical LEEP biopsy affecting care of mother, antepartum Hx of tubal ligation History of hysteroscopy Hx of dilation and curettage Hx of laparoscopy Social History household members: spouse current occupational status: employed current occupation: [employer]- [employer] Smoking Status: Never smoker alcohol intake: current alcohol intake frequency: holidays/special occasions only substance use type: does not use caffeine: Yes Type: carbonated beverages Number of servings: 2 and coffee Number of servings: 2 seatbelt use: always do you feel safe at home: Yes additional social history: - Mina- [employer] Artie and Romeo- Husbands cousins children, they are in the process of adopting them, they have full custody. Review of Systems (Anesthesia) ROS Narrative System reviewed and no additional complaints, except as documented.
--- NOTE | 2023-12-21 11:08 | HP.PCM_ITS ---
History and Physical Date of Admission: 12/21/23 Date of Service: 11/02/23 MR#: [id number] Acct: [id number] Name: JUAN MEHTA Rep #: [id number] : 1990 Provider: Dr. Zaid Carney MD Age/Sex: 33/F Location: [facility] Status: Signed Intake Vital Signs 09/06/2413:43 Height 5 ft 2 in Weight: 175 lb 2 oz BMI 32.0 BP 123/78 H Blood Pressure Location Rt brachial Position Sitting Respiration 18 Pulse 88 Pulse Source Monitor Temp 97 F L Temp Source Temporal Pulse Oximetry (%) 99 Oxygen Delivery Method room air Intake Visit Reasons: BARIUM SWALLOW RESULTS Chief Complaint: f/u barium swallow Adjunct Faculty Instructor Required: No Is patient in pain?: No Allergies latex Allergy (Intermediate, Verified 11/02/23 13:02) Rashezetimibe (From Zetia) Adverse Reaction (Severe, Verified 11/02/23 13:02) tachycardia Medications ?Medication ?Instructions ?Recorded ?Confirmed ?Type losartan 25 mg tablet 25 mg PO DAILY #30 tabs 04/06/23 11/02/23 Rx hydrochlorothiazide 25 mg tablet 25 mg PO DAILY #30 tabs 04/15/23 11/02/23 Rx aspirin 81 mg tablet,delayed 81 mg PO DAILY 06/28/23 11/02/23 History release buspirone 7.5 mg tablet 7.5 mg PO BID 06/28/23 11/02/23 History evolocumab 140 mg/mL subcutaneous 140 mg subcut Q2W #2 mL 09/07/23 11/02/23 Rx syringe (Repatha Syringe) pantoprazole 40 mg tablet,delayed 40 mg PO BID 30 days #60 tabs 10/05/23 11/02/23 Rx release Have you fallen in the past year?: No PFSH Medical History Family history of sudden cardiac Statin intolerance Encounter for monitoring diuretic therapy Encounter for pre-employment health screening examination Hypertension Hiatal hernia Reflux esophagitis Atherosclerotic vascular disease Obesity Arthralgia Atherosclerotic cardiovascular disease High cholesterol History of echocardiogram Endometriosis determined by laparoscopy Chronic pelvic pain in female Loose stools Enteritis Dyslipidemia Anxiety Palpitations GERD (gastroesophageal reflux disease) Right lower lobe pulmonary infiltrate Headache DUB (dysfunctional uterine bleeding) Restless legs Migraine headache Gastric reflux Non-smoker Hx of LEEP (loop electrosurgical excision procedure) of cervix complicating Surgical History History of breast biopsy History of cervical LEEP biopsy affecting care of mother, antepartum Hx of tubal ligation History of hysteroscopy Hx of dilation and curettage Hx of laparoscopy Family History Grandmother Diabetes Kidney disease HypertensionBrother Diabetes HLD (hyperlipidemia)Father Heart disease Hypertension Afib HLD (hyperlipidemia)Grandfather Heart disease HypertensionMother Heart disease CardiomyopathyGrandfather Heart disease Myocardial infarction HLD (hyperlipidemia)Other Hypertrophic cardiomyopathy Social History household members: spouse current occupational status: employed current occupation: [employer] Smoking Status: Never smoker alcohol intake: current alcohol intake frequency: holidays/special occasions only substance use type: does not use caffeine: Yes Type: carbonated beverages Number of servings: 2 and coffee Number of servings: 2 seatbelt use: always do you feel safe at home: Yes additional social history: - Mina- Rn Internship Art[employer] and Romeo- Husbands cousins children, they are in the process of adopting them, they have full custody. HPI HPI HPI: Patient is a 33-year-old female who presents for complaints of heartburn, acid reflux, and vomiting. They are referred for surgical consultation from Dr. Bacon. She was last seen 09/07/2023. She shares that she has been in the usual state of health but did get started on Repatha given her apparently accelerated atherosclerosis. She initially states that she does not want to do surgery if she does not have to, but then confesses that she is more concerned about her healing process and specifically is concerned about her inability to hold her new granddaughter. She does recognize that her granddaughter will need her more though in the future and that likely her present weight will not be an issue postoperatively. When asked to update me on the interval since her last visit as to her symptoms, Mrs. Mehta states that this likely only been 1 episode in t he past 6 weeks as she has remained faithful with her PPI. Still, she expresses optimism about her future when she does not have to take this medication. Lastly, she reminds me that she is interested in pursuing an umbilical hernia repair at the time of her surgery. Below is recapitulated from patient's prior visit for ease of review: Patient is a 33-year-old female who presents for complaints of heartburn, acid reflux, and vomiting. They are referred for surgical consultation from Dr. Bacon. Patient shares that she was first diagnosed with a hernia in November of last year (2022). However, she shares that she has been to [facility] for stomach issues numerous times and she underwent CT imaging of the abdomen pelvis on several occasions that shared a concern for hiatal hernia in their impression dating back at least 2 years. She states that every time she presented to the emergency department she received a cocktail for her symptoms and then was dismissed. She also relates that upon completing her EGD, Dr. Bacon shared that her esophagus showed significant change from acid exposure. Mrs. Mehta shares that before assuming her new medication regimen of panto prazole 40 mg twice daily she would experience uncontrollable symptoms of reflux on a daily basis and have a difficult time keeping anything down. She estimates that she has had the symptoms dating all the way back to when she was just 10 years old (and she reports she was put on medication for reflux and heartburn at that time). In addition to the pantoprazole Mrs. Mehta was previously prescri bed Carafate, however, she discontinued this medication on the account of bloating symptoms. Now on this regimen Mrs. Mehta reports that her symptoms occur only 1 time per week and with that only if lying flat. She still does describe some fullness in her throat that she feels after eating on a more regular basis. Patient has identified trigger foods with red sauces, anything spicy, and caffei ne. She has eliminated nearly all these things from her diet, but states that she drinks 1 cup of black coffee (iced) per day. She also has careful to keep her dinnertime between 4 and 5:00 at night before returning to bed at 9-9 30 and denies any snacking in between. With the above medication and dietary regimen she shares that she has not had any nighttime awakenings for least 2 months. She also confirms that she sleeps with her head propped. In addition to the EGD performed by Dr. Bacon, patient shares that she underwent manometric testing as well. She describes this as a distressing endeavor that she would never wish to repeat again but believes that the results were normal. Patient's imaging notes presence of pancolonic diverticulosis, however she shares that she has not had constipation since she was a child. She denies any bloody bowel movements. She has never undergone colonoscopy. Patient's past surgical history includes laparoscopic treatment for an ectopic as well as a tubal ligation. She shares that she has persistent discomfort in her umbilical region and is concerned a suture may still be retained in that location. ROS General General: No weight change, appetite, fatigue, colon cancer, breast cancer or weakness HEENT HEENT: No difficulty swallowing, eye injury, eye surgery, swollen glands or hoarseness Endo Endocrine: No thyroid disease, diabetes mellitus, thyroid cancer, Hair loss, heat intolerance or cold intolerance Skin Skin: No rash or changing moles Musc Musculoskeletal: Yes arthritis and rheumatoid arthritis; No back problems, gout or joint pain Cardio Cardiovascular: Yes heart disease and high blood pressure; No murmur, pacemaker, atrial fibrillation, heart attack, heart stent, palpitations, shortness of breat with exertion or chest pain Psych Psychiatric: Yes anxiety; No depression or hearing voices Resp Respiratory: No shortness of breath, No sleep apnea, No cough, No COPD, No asthma, No emphysema and No wheezing Gastro Gastrointestinal: No abdominal pain, No nausea or vomiting, No diarrhea, No constipation, No blood in stool, Yes acid reflux, No hemorrhoids, Yes ulcers, No gallbladder problem and No black,tarry stools Michael Hematologic: Yes blood thinners, No blood disorders, No bleeding, No anemia and No blood clots Additional Details: aspirin 81mg Neuro Neurologic: No numbness, No tingling and No weakness Exam Const General: cooperative and comfortable Orientation: alert, awake and oriented x3 GI Other: Nondistended, soft, mild tenderness palpation of the epigastrium. Palpable umbilical hernia is soft and nontender. It is easily reducible through an approximately 2 cm defect. Assessment and Plan Assessment and Plan (1) Hiatal hernia: Status: Chronic Comment: Patient is a 33-year-old female on near maximal medical support with twice daily PPI dosing to manage symptoms of reflux that have evidently been present for the past 23 years. While she now reports reasonable control of her symptoms with just an episode 1 time per week, she states she remains convinced that she needs something done given the duration of her symptoms. Further, she comments that she is concerned about her risk for throat cancer. I did find with her pathology from her EGD in November 2022 that she had nondysplastic Alas's esophagus and I did described to her that this can be considered a precursor to esophageal cancer. I was careful to clarify to her, however, that antireflux surgery is not necessarily curative but can arrest the progression in its current state. I also took time to outline the various orientations of the stomach relative to the diaphragm at the esophageal hiatus and how these relationships impact the integrity of the lower esophageal sphincter. I then proceeded to demonstrate how the anatomy is altered with a procedure to close/reduce the hiatal hernia and perform an antireflux fundoplication. Given patient's manometry results from February 24, 2023 I stated she would be a candidate for a Jovani fundoplication. In an effort to be completely transparent I shared with patient that properly selected patients can expect an approximate 80% rate of at least partial resolution of their symptoms. Furthermore, I described that both belching and vomiting after the procedure are difficult if not impossible. I also shared that one of the alternatives to this procedure would be a Linx procedure, but advised her that this is not a procedure I do. Patient states that she is most interested in a fundoplication procedure because she is reluctant to consider foreign bodies being used with her anatomy. She also states that it would be in her interest to consider surgical timeline for this coming fall so that she can wait until her children return to school. She assures me that it should not be difficult to obtain clearance from work to assume a lifting restriction postoperatively. Update 11/02/2023: Patient presents for follow-up visit after normal upper GI with barium swallow did not show evidence of either hiatal hernia or reflux. Patient shares that she has had an uneventful interval since her last visit?s ymptoms?cabral. She initially expresses reluctance about scheduling surgery, but upon further discussion she circles back to her conviction that she is ready to proceed with surgery and simply had wanted to delay scheduling on the account of being unable to hold her granddaughter during her recovery. After she expressed this decision for surgery I proceeded to talk to her again about the details of the procedure and contrary to my previous assessment about recommending a Jovani fundoplication, I do believe patient be best served with a partial fundoplication (planned for toupet type) given finding of mildly elevated pressures of her upper esophagus. I shared that it would be my concern that any increased pressure of her lower esophagus would be transmitted to a problematic increased pressure in this location postoperatively. Patient expresses agreement. Lastly, we discussed postoperative observation in the hospital and postoperative dietary restrictions. Mrs. Mehta offers no further questions. Plan: ? Plan for laparoscopic hiatal hernia repair with partial fundoplication. Procedure to be completed with intent for postoperative observational disp osition (2) Gastric reflux: Status: Chronic Comment: Continue twice daily PPI and revisit interest in antireflux surgery with follow- up visit after upper GI study. I have examined the patient the following changes are noted: Patient had preoperative labs completed on 12/13/2023 that showed new anemia with a hemoglobin of 8.2. Patient does describe some recent fatigue and admits that she has always had a difficulty with heavy menstrual cycles. She otherwise denies any awareness of recent blood loss. Hemoglobin was rechecked today and is stable at 8.2. Discussed with anesthesia that we will proceed to the operating room but obtain type and screen prior to wheeling back to the operating room. Patient and her had several questions related to technical details of the operation as well as postprocedure expectations with limitations of belching or vomiting. These were answered to their satisfaction and they denied any further questions. Will now proceed to the operating room upon completion of patient's type and screen drawl for laparoscopic hiatal hernia repair with partial fundoplication.
[2023-12-21] MEDS: Cefazolin 2 GM in Syringe IV (11:20)
[2023-12-21] MEDS: Bupivacaine Mpf 0.5% 30 ML VIAL (11:52)
--- NOTE | 2023-12-21 15:16 | OP.PCM_ITS ---
Problems Associated Problem List Diagnoses (1) Hiatal hernia: Report of Operation Date of Procedure: 12/21/23 Pre-Operative Diagnosis: 1. Refractory gastroesophageal reflux disease 2. History of Alas's esophagus Post-Operative Diagnosis: 1. Refractory gastroesophageal reflux disease 2. History of Alas's esophagus 3. Hiatal hernia Surgery/Procedure Performed:: Laparoscopic hiatal hernia repair with toupet fundoplication Description of Surgical Findings:: ? Normal gastric anatomy with confirmation of small hiatal hernia Surgeon: Zaid Carney shot hole driller: Tommy Romero shot hole driller: Ria Corona Type of Anesthesia: General/Supplemental Anesthesiologist: Clarke Bains Specimen's removed: None Drains: None Estimated Blood Loss (mL): 30 Description of Procedure: After appropriate identification in the PACU holding, patient was brought to the operating room. There she was positioned supine on the operating room table. She underwent induction with general endotracheal anesthetic. She was positioned in a lithotomy position using yellowfin leg holders and a beanbag. Care was taken to avoid pressure points. A Wright catheter was then placed with sterile technique. Patient's abdomen was prepped and draped in usual sterile fashion and a formal timeout was conducted to confirm the patient and procedure. Procedure was begun with a Optiview entry in the left upper quadrant using a 5 mm port after Veress insufflation. With this technique, pneumoperitoneum was established at 15 mmHg and subsequent laparoscopic investigation revealed no inadvertent injury to the viscera below. Three other trocars were placed in the right and left upper quadrants so they ultimately resided along para umbilical, midclavicular, and anterior axillary lines. Lastly a Rosalia liver retractor was placed in the epigastrium also under laparoscopic visualization. This retractor was manipulated to elevate the left lobe of the liver and provide visualization to the diaphragmatic hiatus. From this vantage point it was clearly evident the patient had a small hiatal hernia. Dissection of the hernia sac was begun on the side of the right ryan using a laparoscopic LigaSure device and carried clockwise around the anterior hiatus. I then switched to opening the lesser sac by incising the gastrocolic ligament. Despite great care to ensure I was completely across the short gastric vessels I did experience some mild hemorrhage from a transected short gastric artery. This was secured on the gastric side with a Hem-o-karthik clip and LigaSure energy was applied to the other cut end on the omental side. Then the opening of the gastrocolic ligament was completed and both crura were clearly established. We then performed some limited mediastinal dissection to provide greater esophageal excursion taking care to identify the anterior and posterior vagi as well as the parietal pleura. Once we had circumferential dissection, a retroesophageal window was made with blunt dissection and 1/2 inch Midland drain was placed about this opening to provide further cephalad traction on the stomach. With this traction we identif ied a few remaining hernia sac adhesions which were taken down with the use of the LigaSure device. Next performed cruralplasty with interrupted 0 Ethibond suture and pledgets that was placed approximately at 1 cm intervals for a total of 3 stitches. With this approximation, there was still a slight gap between the cruroplasty and the posterior esophagus. After this cruroplasty a partial, posterior (toupet type) fundal wrap was performed. To ensure the wrap was not overly tight anesthesia, Dr. Romero passed a 54 Maori bougie under direct laparoscopic visualization through the GE junction. The fundus of the stomach was secured to the esophagus with 2-0 Ethibond suture in an interrupted fashion bilaterally leaving a gap of the esophagus medially. After performance of this wrap, the underside of the stomach was tacked to the crural repair with a 0 Ethibond suture for extra stability. Lastly, a endoscopic exam was performed of this wrap and we confirmed that the wrap allowed easy passage of the endoscope. The stomach was evacuated of air and the scope was withdrawn. Returning to the abdomen, a Rosalia retractor was removed from position under laparoscopic visualization and pneumoperitoneum was evacuated. The 10 mm port was closed under laparoscopic direction using a Johnny Baldwin suture passer and 0 Vicryl suture. A total of 30 mL of half percent bupivacaine were infiltrated locally about these port sites both prior to insertion and at this point in closure. 4-0 Monocryl was used to close these incisions at the skin in a subcuticular fashion. Steri-Strips and OpSite dressings were applied and the case was formally concluded. The patient's nasogastric tube and Wright catheter were removed and the patient was allowed to emerge from anesthesia. They were then delivered to PACU for ongoing recovery. Grafts/Implants Used: None Complications None Admit VTE Documentation VTE Mechan Device Prophylaxis: SCD's
--- NOTE | 2023-12-21 15:19 | PCM.POST.ANE ---
Anesthesia: Postop Eval I Current Vital Signs Temperature: 98.5 F Pulse Rate: 89 Blood Pressure: 131/82 Respiratory Rate: 18 Pulse Ox: 100 Assessment Airway patent: Yes Spontaneous unlabored respirations: Yes nausea: No Vomiting: No Anesthesia Complication: No Fluid Hydration Crystalloid volume administer (ml): 1,200 Total IV fluid infused: 1,200 Progress Note Anesthesia document: Postop Eval 1 completed: Yes
[2023-12-21] MEDS: Ketorolac 15 MG/ML Vial IV (17:04)
[2023-12-21] MEDS: Ondansetron 4 MG/2 ML Vial IV (17:20)
--- NOTE | 2023-12-21 18:04 | NURSING ---
On arrival to floor pt c/o uncomfortable pain to Lt shoulder worse then surgery pain. Pt wanted to get OOB to try to get rid of the pain. pt sat at edge of bed and got dizzy and nauseated. Did not go away and pt then wanted to lay down. HOB is at 30 degrees at this time. Pt stated dizzyness and nausea gone after laying back down.
[2023-12-21] MEDS: HYDROCODONE/APAP 7.5-325/15ML 15 ML UDC PO (20:40)
[2023-12-21] MEDS: Metoclopramide 10 MG/2 ML Vial IV (21:46)
[2023-12-22] MEDS: Ketorolac 15 MG/ML Vial IV ×3 (00:12→11:44)
--- NOTE | 2023-12-22 01:23 | POSTOPAN2_ITS ---
Anesthesia Postop Eval I Sum Postop Eval Completion status Anesthesia document: Postop Eval 1 completed: Yes Anesthesia Postop Eval I Summary Anesthesia Postop Eval I Summary: Anesthesia Postop Eval I: Assessment Summary Airway patent Yes 12/21/23 15:20 CARVER HAND.CSIR Spontaneous unlabored Yes 12/21/23 15:20 CARVER HAND.CSIR respirations Mental status nausea No 12/21/23 15:20 CARVER HAND.CSIR Vomiting No 12/21/23 15:20 CARVER HAND.CSIR Anesthesia Postop Eval I: Fluid Summary Crystalloid volume administer 1,200 12/21/23 15:20 CARVER HAND.CSIR (ml) Colloids volume administered ( ml) Blood Product volume administered (ml) Total IV fluid infused 1,200 12/21/23 15:20 CARVER HAND.CSIR Anesthesia Postop Eval I: Summary Notes Anesthesia Complication No 12/21/23 15:20 CARVER HAND.CSIR Anesthesia Complication Comment: Post-operative progress note Anesthesia: Postop Eval II Evaluation Mental status: Awake and Calm Pain Level: 3 nausea: No Vomiting: No Complications Anesthesia Complication: No
--- NOTE | 2023-12-22 01:23 | PCM.POSTANE2 ---
Anesthesia Postop Eval I Sum Postop Eval Completion status Anesthesia document: Postop Eval 1 completed: Yes Anesthesia Postop Eval I Summary Anesthesia Postop Eval I Summary: Anesthesia Postop Eval I: Assessment Summary Airway patent Yes 12/21/23 15:20 DIE MECHANIC.CSIR Spontaneous unlabored Yes 12/21/23 15:20 DIE MECHANIC.CSIR respirations Mental status nausea No 12/21/23 15:20 DIE MECHANIC.CSIR Vomiting No 12/21/23 15:20 DIE MECHANIC.CSIR Anesthesia Postop Eval I: Fluid Summary Crystalloid volume administer 1,200 12/21/23 15:20 DIE MECHANIC.CSIR (ml) Colloids volume administered ( ml) Blood Product volume administered (ml) Total IV fluid infused 1,200 12/21/23 15:20 DIE MECHANIC.CSIR Anesthesia Postop Eval I: Summary Notes Anesthesia Complication No 12/21/23 15:20 DIE MECHANIC.CSIR Anesthesia Complication Comment: Post-operative progress note Anesthesia: Postop Eval II Evaluation Mental status: Awake and Calm Pain Level: 3 nausea: No Vomiting: No Complications Anesthesia Complication: No
[2023-12-22] MEDS: HYDROCODONE/APAP 7.5-325/15ML 15 ML UDC PO ×2 (03:18→09:33)
[2023-12-22 03:19] VITALS: BP 137/94; PULSE 110; RESP 18; TEMP 36.9; O2SAT 99
[2023-12-22 06:36] LABS: Absolute Lymphocyte Count 1.63 X10^3/uL (0.83-4.51); Absolute Neutrophil Count 9.2 X10^3/uL (2.0-7.7); Basophil# 0.01 X10^3/uL; Basophil% 0.1 % (0-1); Eosinophil# 0.01 X10^3/uL; Eosinophils% 0.1 % (0-5); Hematocrit 25.1 % (37-47); Hemoglobin 7.6 g/dL (12.0-15.0); Lymphocyte # 1.63 X10^3/ul (0.83-4.51); Lymphocyte % 13.6 % (19-41); Mean Corp Hgb Conc 30.3 g/dL (32-36); Mean Corpuscular Hgb 21.1 pg (27.0-32.0); Mean Corpuscular Volume 69.7 fL (81-99); Mean Platelet Vol. 9.3 fl (6.2-12.0); Monocyte# 1.09 X10^3/uL; Monocyte% 9.1 % (0-10); NRBC Flagged by Analyzer 0 % (0-5); Neutrophil # 9.24 X10^3/uL (2.7-7.7); Neutrophil % 76.8 % (47-70); Platelet Count 396 K/mm3 (150-450); RBC Distribution Width CV 16.7 % (11.6-14.6); RBC Distribution Width SD 42.5 fl (35.1-43.9)
[2023-12-22 08:26] VITALS: BP 135/84; PULSE 106; RESP 16; TEMP 36.5; O2SAT 98
--- NOTE | 2023-12-22 08:36 | PCM.PN.SRG ---
Subjective Subjective Patient evaluated resting comfortably. She noted some nausea initially after the procedure. This has resolved. She notes some soreness at the incision sites. Objective Data Objective Data Vital Signs: Vital Signs Temp Pulse Resp BP Pulse Ox O2 Del Method 97.7 F L 106 H 16 135/84 H 98 Room Air 12/22/23 08:26 12/22/23 08:26 12/22/23 08:26 12/22/23 08:26 12/22/23 08:26 12/22/23 08:26 Oxygen Delivery Method Room Air Weight: 169 lb 12.095 oz Body Mass Index (BMI) 31.0 Intake & Output: Intake and Output for Last 24 Hours 12/20/23 12/21/23 12/22/23 23:59 23:59 23:59 Intake Total 260 / 260 Output Total 900 / 900 Balance -640 / -640 Lab / Micro Data 12/22/23 06:24 12/21/23 10:44 Labs: Laboratory Results - last 24 hr 12/21/23 10:44: WBC 5.7, RBC 3.93 L, Hgb 8.2 L, Hct 27.4 L, MCV 69.7 L, MCH 20.9 L, MCHC 29.9 L, RDW Std Deviation 41.3, RDW Coeff of Sharla 16.5 H, Plt Count 398, MPV 9.4, Immature Gran % (Auto) 0.300, Neut % (Auto) 58.6, Lymph % (Auto) 30.4, [place] % (Auto) 7.9, Eos % (Auto) 2.1, Baso % (Auto) 0.7, Absolute Neuts (auto) 3.4, Absolute Lymphs (auto) 1.74, Nucleated RBC % 0, Sodium 141, Potassium 3.5, Chloride 109 H, Carbon Dioxide 26.0, Anion Gap 6, BUN 12, Creatinine 0.65, Estim Creat Clear Calc 116.06, Est GFR (MDRD) Af Amer 132, Est GFR (MDRD) Non-Af 109, BUN/Creatinine Ratio 18.4, Glucose 100, Calcium 9.0 12/21/23 11:00: Blood Type A NEGATIVE, Antibody Screen NEGATIVE, Crossmatch See Detail 12/22/23 06:24: WBC 12.0 H, RBC 3.60 L, Hgb 7.6 L, Hct 25.1 L, MCV 69.7 L, MCH 21.1 L, MCHC 30.3 L, RDW Std Deviation 42.5, RDW Coeff of Sharla 16.7 H, Plt Count 396, MPV 9.3, Immature Gran % (Auto) 0.300, Neut % (Auto) 76.8 H, Lymph % (Auto) 13.6 L, [place] % (Auto) 9.1, Eos % (Auto) 0.1, Baso % (Auto) 0.1, Absolute Neuts (auto) 9.2 H, Absolute Lymphs (auto) 1.63, Nucleated RBC % 0 Physical Exam GI GI Narrative: Abdomen- soft, slight tenderness at the incision sites. No signs of infection or erythema noted. Incisions c/d/i. Assessment & Plan Assessment/Plan (1) Hiatal hernia: PLAN: I am following this patient in conjunction with Dr. Carney. he has independently evaluated this patient. Patient recovery well Nausea has resolved Tolerating clear liquids. Plan to increase diet to full liquids If tolerate full liquids, plan for discharge later today around lunch time Charges/Coding Visit Charges Inpatient E&M: 33867 Subs Hosp L1 (Post-op; no charge)
--- NOTE | 2023-12-22 09:20 | DCINST_ITS ---
Discharge Instructions Diet Discharge Diet: - (Please follow the diet attached to the discharge instructions; full liquids only until follow-up) Activity Discharge Activity: May Not Drive (3-5 days or while on narcotic pain medication) and May Shower (2 days) Lifting Restrictions: No lifting greater than 15 pounds for 2 wks. No strenuous activity 4-6 wks Dressing / Incision Call your doctor if your incision/area has: Continuous Slow Oozing, Sudden Increased Bleeding, Increased Pain/ Swelling, Increased Redness, Foul Smelling Discharge and Swelling at the incision site Call your doctor if you observe: Fever of 101 or Higher Suture Line Care: Avoid Pulling/Pushing and Avoid Pinching/Bending Remove Dressing in: 2 days Cleanse incision/area with: Soap & Water Additional Dressing/Incision Instructions:: Leave steri-strips in place until follow-up Follow Up Care Please Follow Up With: Zaid Carney MD When: Please contact our office at [phone], option #2, to follow-up in 2 weeks Test Results: Test results from this visit will be discussed in further detail at your follow- up appointment, if applicable. Discharge Plan Admission Admit Date/Time: 12/21/23 15:09 Primary Reason for Your Visit: S/p laparoscopic hiatal hernia repair with toupet fundoplication Attending Provider: Zaid Carney Primary Care Provider: Susanna Moscoso Instructions Additional Instructions / Restrictions: Laparoscopic Jovani fundoplication or Toupet procedure Diet ? This is outlined on a separate diet instruction sheet (see next page) Activity ? You may drive in 3-5 days but not while taking narcotic pain medication. ? I encourage walking. You may go up steps, one at a time. ? Do not swim or use hot tubs for 2 weeks. Lifting ? You may lift up to 15 pounds for 2 weeks. No strenuous exercises/activities for 4-6 weeks. Dressings/Incision ? You may shower OVER your plastic dressings ? Do NOT tub bathe for 1 week ? Leave plastic dressings on for 2 days. ? When plastic dressings are removed, you will find steri strips. It is okay to continue showering with them in place, pat them dry. ? You may remove steri-strips after 1 week. We recommend getting them soaking wet for easier removal. Medications ? Anesthesia used during surgery and pain medications may cause constipation. I recommend initiating on the day of surgery a fiber supplement like, Metamucil, Citrucel, FiberCon, Benefiber, or a generic form of these medications. 1 heaping tablespoon in water daily. You may continue to utilize any bowel regimen or oral laxatives that you routinely take. ? As long as you are not intolerant to Tylenol, acetaminophen, ibuprofen, Motrin, Advil, Aleve, or similar medications, I would recommend transitioning to these [id number] medicines as soon as possible instead of continued use of narcotic pain medication. Follow up ? You should call [facility] soon after surgery, at [phone] option 2 to make a follow up appointment for 14 days after your surgery. Diet After Jovani Fundoplication Surgery This diet information is for patients who have recently had Jovani fundoplication surgery to correct reflux disease or to repair various types of hernias, such as hiatal hernia and intrathoracic stomach. This diet may also be used for other gastrointestinal surgeries, such as Heller myotomy and repair of achalasia. The diet will help control diarrhea, excess gas and swallowing problems, which may occur after this type of surgery. Keeping Your Stomach from Stretching: ?? Eat small, frequent meals (six to eight per day). This will help you consume the majority of the nutrients you need without causing your stomach to feel full or distended. ?? Drinking large amounts of fluids with meals can stretch your stomach. You may drink fluids between meals as often as you like, but limit fluids to 1/2 cup (4 fluid ounces) with meals and one cup (8 fluid ounces) with snacks. ?? Sit upright while eating and stay upright for 30 minutes after each meal. [place] can help food move through your digestive tract. Do not lie down after eating. Sit upright for 2 hours after your last meal or snack of the day. ?? Eat very slowly. Take your time when eating. ?? Take small bites and chew your food well to heater operator helper in swallowing and digestion. ?? Avoid crusty breads and sticky, gummy foods, such as bananas, fresh doughy breads, rolls and doughnuts. These types of foods become sticky and difficult to swallow. ?? Toasted breads tend to be better tolerated. ?? Lastly, if you eat sweets, consume them at the end of your meal to avoid a group of symptoms referred to as ?dumping syndrome?. This describes the rapid emptying of foods from the stomach to the small intestine. Sweetened beverages, candy and desserts move more rapidly and dump quickly into the intestines. This can cause symptoms of nausea, weakness, cold sweats, cramps, diarrhea and dizzy spells. Avoiding Gas: ?? Avoid drinking through a straw. Do not chew gum or tobacco. These actions cause you to swallow air, which produces excess gas in your stomach. Chew with your mouth closed. ?? Avoid any foods that cause stomach gas and distention. These foods include corn, dried beans, peas, lentils, onions, broccoli, cauliflower and any food from the cabbage family. ?? Avoid carbonated drinks, alcohol, citrus and tomato products. When will I be able to eat a soft diet? After Jovani fundoplication surgery, your diet will be advanced slowly by your surgeon. Generally, you will be on a clear liquid diet for the first few meals. Then you will advance to the full liquid diet for a meal or two and eventually to a Jovani soft diet. Please be aware that each patient's tolerance to food is different. Your doctor will advance your diet depending on how well you progress after surgery. Clear Liquid Diet The first diet after surgery is the clear liquid diet. It includes the following liquids: ?? Apple juice ?? Cranberry juice ?? Grape juice ?? Chicken broth ?? Beef broth ?? Flavored gelatin (Jell-O?) ?? Decaf tea and coffee ?? Caffeinated beverages are permitted based on tolerance ?? Popsicles ?? [place] ice Carbonated drinks (sodas) are not allowed for the first six to eight weeks after surgery. After this time you can try them again in small amounts. Full Liquid Diet- DISCHARGE DIET The full liquid diet contains anything on the clear liquid diet, plus: ?? Milk, soy, rice and almond (no chocolate) ?? Cream of wheat, cream of rice, grits ?? Strained creamed soups (no tomato or broccoli) ?? Vanilla and strawberry-flavored ice cream ?? Sherbet ?? Blended, custard styled or whipped yogurt (plain or vanilla only) ?? Vanilla and butterscotch pudding (no chocolate or coconut) ?? Nutritional drinks including Ensure?, Boost?, [place] Instant Breakfast? (no chocolate-flavored) Note: Dairy products, such as milk, ice cream and pudding, may cause diarrhea in some people just after surgery. You may need to avoid milk products. If so, substitute them with lactose-free beverages, such as soy, rice, Lactaid? or almond milks. At your 2 week follow-up, Dr. Carney will discuss with you when to advance your diet. Discharge Orders/Prescriptions Prescriptions: New hydrocodone-acetaminophen 7.5-325 mg/15 mL Solution 15 ml PO Q6H PRN PRN (Reason: Pain Score 6-10) 3 Days Qty: 200 0RF ondansetron 4 mg tablet,disintegrating 4 mg PO Q8H PRN (Reason: nausea and vomiting) Qty: 10 0RF Continued losartan 25 mg tablet 25 mg PO DAILY Qty: 30 11RF aspirin 81 mg tablet,delayed release (DR/EC) 81 mg PO DAILY buspirone 7.5 mg tablet 7.5 mg PO BID hydrochlorothiazide 25 mg tablet 25 mg PO DAILY Qty: 30 11RF Repatha Syringe 140 mg/mL syringe 140 mg subcut Q2W Qty: 2 11RF pantoprazole 40 mg tablet,delayed release (DR/EC) 40 mg PO BID 30 Days Qty: 60 5RF Referrals / Follow Up: Zaid Carney MD [Med Staff - Active Staff] - 01/05/24 Susanna Moscoso NP-C [Primary Care Provider] - Disposition Disposition (needs filled in before D/C Order can be placed): Home, Self Care
[2023-12-22] MEDS: hydroCHLOROthiazide 25 MG Tablet PO (11:43)
[2023-12-22] MEDS: Pantoprazole Sodium 40 MG Tablet PO (11:44)
[2023-12-22 13:54] VITALS: BP 125/82; PULSE 94; RESP 16; TEMP 36.5; O2SAT 100
[2023-12-22] MEDS: oxyCODONE 5 MG Tablet PO (16:50)
--- NOTE | 2023-12-22 17:09 | CASEMGMT ---
JAQUELINE CHAVEZ NOTE: JAQUELINE CHAVEZ to room. Introduced self and role. Pt sitting on edge of bed, getting ready to get up to the restroom. @ bedside. Pt states she has been getting up ad vika in room, has been assisting as needed. She denies having any discharge concerns/needs. Malu BSN JAQUELINE CHAVEZ
== END 2023-12-22 18:18 | disposition home or self-care (01) ==
LOC: SDC 15:34 → MS3 15:34
PROVIDERS: Anesthesiology; Admitting Provider Surgery; PCP Nurse Practitioner Family; Referring Provider Surgery; Visit Provider Surgery
PROC: (CPT 43325; principal; 2023-12-21 10:40)
DX: K44.9 Diaphragmatic hernia without obstruction or gangrene (principal); E78.00 Pure hypercholesterolemia, unspecified; I10 Essential (primary) hypertension; K21.9 Gastro-esophageal reflux disease without esophagitis; Z79.899 Other long term (current) drug therapy; Z79.82 Long term (current) use of aspirin
CPT/HCPCS: 43281; 00790; 36415; 80048; 85025; 85027; 86850; 86900; 86901; 86920; 86922; 96374; 96375; 96376; 99221; J7120; G0378; J2405

== ENCOUNTER → 2024-01-02 | Outpatient (CLI) | payer OTHER, SELFPAY ==
[2024-01-02 10:26] LABS: Absolute Lymphocyte Count 1.69 X10^3/uL (0.83-4.51); Absolute Neutrophil Count 4.4 X10^3/uL (2.0-7.7); Basophil# 0.03 X10^3/uL; Basophil% 0.4 % (0-1); Eosinophil# 0.17 X10^3/uL; Eosinophils% 2.5 % (0-5); Hematocrit 29.6 % (37-47); Hemoglobin 8.7 g/dL (12.0-15.0); Lymphocyte # 1.69 X10^3/ul (0.83-4.51); Lymphocyte % 24.9 % (19-41); Mean Corp Hgb Conc 29.4 g/dL (32-36); Mean Corpuscular Hgb 20.7 pg (27.0-32.0); Mean Corpuscular Volume 70.5 fL (81-99); Mean Platelet Vol. 9.9 fl (6.2-12.0); Monocyte# 0.48 X10^3/uL; Monocyte% 7.1 % (0-10); NRBC Flagged by Analyzer 0 % (0-5); Neutrophil # 4.38 X10^3/uL (2.7-7.7); Neutrophil % 64.7 % (47-70); Platelet Count 467 K/mm3 (150-450); RBC Distribution Width SD 42.6 fl (35.1-43.9); White Blood Count 6.8 K/mm3 (4.4-11.0)
== END | disposition home or self-care (01) ==
LOC: LAB 09:46
PROVIDERS: PCP Nurse Practitioner Family; Referring Provider Surgery; Visit Provider Surgery
DX: D64.9 Anemia, unspecified (principal)
CPT/HCPCS: 36415; 85025

== ENCOUNTER → 2025-01-05 | Outpatient (CLI) | payer OTHER, SELFPAY ==
[2025-01-05 11:10] LABS: Hematocrit 36.6 % (37-47); Hemoglobin 12.5 g/dL (12.0-15.0); Mean Corp Hgb Conc 34.2 g/dL (32-36); Mean Corpuscular Volume 84.9 fL (81-99); Mean Platelet Vol. 9.1 fl (6.2-12.0); Platelet Count 345 K/mm3 (150-450); RBC Distribution Width CV 12.5 % (11.6-14.6); RBC Distribution Width SD 38.5 fl (35.1-43.9); Red Blood Count 4.31 M/mm3 (4.2-5.4); White Blood Count 7.6 K/mm3 (4.4-11.0)
[2025-01-05 11:41] LABS: AST(SGOT) 17 U/L (<=31); Alanine Aminotransfer ALT/SGPT 25 U/L (<=34); Albumin, Serum 4.0 g/dL (3.5-5.0); Alkaline Phosphatase 56 U/L (35-104); Anion Gap 8 (5-15); BUN 12 mg/dL (4-19); BUN/Creat Ratio 19.4 RATIO (10-20); Calcium,Total 9.3 mg/dL (7.6-11.0); Carbon Dioxide 24.3 mmol/L (21.0-32.0); Chloride 107 mmol/L (98-108); Cholesterol 156 mg/dL (<=200); Globulin 2.8 g/dL (2.2-4.2); Glucose 108 mg/dL (70-99); Low Density Lipoprotein Calc. 100 mg/dL; Potassium 4.6 mmol/L (3.3-5.1); Triglycerides 91 mg/dL; Very Low Density Lipoprotein 18 mg/dL (5-40); cholesterol:hdl ratio screen 4.03
== END | disposition home or self-care (01) ==
LOC: LAB 10:39
PROVIDERS: PCP Nurse Practitioner Family; Referring Provider Internal Medicine Cardiovascular Disease; Visit Provider Internal Medicine Cardiovascular Disease
DX: I70.90 Unspecified atherosclerosis (principal); E78.5 Hyperlipidemia, unspecified; I10 Essential (primary) hypertension
CPT/HCPCS: 36415; 80053; 80061; 85027